=== PATIENT | male | born 1960 | race Caucasian/White ===

== ENCOUNTER → 2017-01-10 | Outpatient (REF) | payer OTHER ==
[~2017-01-10] MED LIST: ASPI1TAB PO; BENI40TA26 PO
[2017-01-10 17:03] LABS: ALBUMIN 3.7 GM/DL (3.2-5.2); ALBUMIN/GLOBULIN RATIO 1.28 (1.00-1.93); ALKALINE PHOSPHATASE 83 U/L (45-117); ALT/SGPT 21 U/L (12-78); ANION GAP 5 MEQ/L (8-16); AST/SGOT 12 U/L (15-37); BILIRUBIN,TOTAL 0.5 MG/DL (0.2-1.0); BLOOD UREA NITROGEN 13 MG/DL (7-18); CALCIUM LEVEL 10.2 MG/DL (8.5-10.1); CARBON DIOXIDE LEVEL 29 MEQ/L (21-32); CHLORIDE LEVEL 108 MEQ/L (98-107); CHOLESTEROL LEVEL 151 MG/DL (<200); CREATININE FOR GFR 0.98 MG/DL (0.70-1.30); GLOMERULAR FILTRATION RATE > 60.0 (>56); GLUCOSE, FASTING 82 MG/DL (70-105); SODIUM LEVEL 142 MEQ/L (136-145); TOTAL PROTEIN 6.6 GM/DL (6.4-8.2); TRIGLYCERIDES LEVEL 230 MG/DL (<150)
[2017-01-10 17:04] LABS: POTASSIUM SERUM 5.2 MEQ/L (3.5-5.1)
== END ==
LOC: M SFHCCLAY 10:42
PROVIDERS: ATTEND Nurse Practitioner
DX: I10 Essential (primary) hypertension (principal); Z12.5 Encounter for screening for malignant neoplasm of prostate
CPT/HCPCS: 80053; 80061; G0103

== ENCOUNTER → 2018-02-03 | Outpatient (CLI) | payer BC, OTHER | LOC: M SLEEP HO 14:55 | DX: G47.30 Sleep apnea, unspecified (principal) | CPT/HCPCS: G0399 ==

== ENCOUNTER → 2018-02-06 | Outpatient (REF) | payer BC ==
[2018-02-06 18:31] LABS: BASO # 0.1 10^3/uL (0.0-0.2); BASO % 0.8 % (0.0-1.0); EOS # 0.2 10^3/uL (0.0-0.50); EOS % 3.6 % (0.0-3.0); HEMATOCRIT 46.5 % (42.0-52.0); HEMOGLOBIN 16.2 g/dl (13.5-17.5); IMMATURE GRANULOCYTE % 0.5 % (0-3.0); LYMPH # 1.9 10^3/uL (1.5-4.5); MEAN CORPUSCULAR HEMOGLOBIN 31.3 pg (27.0-33.0); MEAN CORPUSCULAR HGB CONC 34.8 g/dl (32.0-36.5); MEAN CORPUSCULAR VOLUME 89.8 fl (80.0-96.0); MONO # 0.7 10^3/uL (0.0-0.8); MONO % 11.2 % (0.0-5.0); NEUTROPHILS # 3.2 10^3/uL (1.8-7.7); NEUTROPHILS % 51.9 % (36.0-66.0); PLATELET COUNT, AUTOMATED 226 10^3/uL (150-450); RED BLOOD COUNT 5.18 10^6/uL (4.30-6.10); WHITE BLOOD COUNT 6.1 10^3/uL (4.0-10.0)
[2018-02-06 18:43] LABS: ALBUMIN 3.8 GM/DL (3.2-5.2); ALBUMIN/GLOBULIN RATIO 1.27 (1.00-1.93); ALKALINE PHOSPHATASE 66 U/L (45-117); ALT/SGPT 20 U/L (12-78); ANION GAP 6 MEQ/L (8-16); AST/SGOT 19 U/L (7-37); BILIRUBIN,TOTAL 0.8 MG/DL (0.2-1.0); BLOOD UREA NITROGEN 16 MG/DL (7-18); CALCIUM LEVEL 9.4 MG/DL (8.5-10.1); CARBON DIOXIDE LEVEL 28 MEQ/L (21-32); CHLORIDE LEVEL 109 MEQ/L (98-107); CHOLESTEROL LEVEL 137 MG/DL (<200); CHOLESTEROL RISK RATIO 4.281 (<5); CREATININE FOR GFR 0.87 MG/DL (0.70-1.30); GLOMERULAR FILTRATION RATE > 60.0 (>56); GLUCOSE, FASTING 71 MG/DL (70-100); HDL CHOLESTEROL 32 MG/DL (>40); LDL CHOLESTEROL 73 MG/DL (<100); NON-HDL-C 105 MG/DL; POTASSIUM SERUM 4.7 MEQ/L (3.5-5.1); SODIUM LEVEL 143 MEQ/L (136-145); TOTAL PROTEIN 6.8 GM/DL (6.4-8.2); TRIGLYCERIDES LEVEL 161 MG/DL (<150)
== END ==
LOC: M SFHCCLAY 13:24
DX: Z00.00 Encounter for general adult medical examination without abnormal findings (principal); G47.30 Sleep apnea, unspecified; I10 Essential (primary) hypertension
CPT/HCPCS: 80053

== ENCOUNTER 2018-12-08 23:05 | Inpatient (IN) | payer OTHER, BC ==
[~2018-12-08] VITALS: Ht 185.4 cm; Wt 110.2 kg
[~2018-12-08 23:05] MED LIST changes: -ASPI1TAB PO; +ASPI81TA26 PO
[2018-12-08] MEDS ORDERED: LISI-538 PO (23:17)
[2018-12-09] MEDS ORDERED: hydrOXYzine 50 MG TAB PO STA (00:12)
[2018-12-09] MEDS ORDERED: methylPREDNISolone INJ 125 MG/2 ML VIAL (J2930) IV ONE (00:15)
[2018-12-09] MEDS ORDERED: diphenhydrAMINE INJ 50MG/ML VIAL (J1200) IV ONE (00:15)
[2018-12-09 00:47] LABS: BASO % 0.2 % (0.0-1.0); EOS # 0.4 10^3/uL (0.0-0.5); EOS % 3.6 % (0.0-3.0); HEMATOCRIT 47.1 % (42.0-52.0); HEMOGLOBIN 16.4 g/dl (13.5-17.5); LYMPH # 1.3 10^3/uL (1.5-5.0); LYMPH % 12.6 % (24.0-44.0); MEAN CORPUSCULAR HEMOGLOBIN 31.9 pg (27.0-33.0); MEAN CORPUSCULAR HGB CONC 34.8 g/dl (32.0-36.5); MEAN CORPUSCULAR VOLUME 91.6 fl (80.0-96.0); MONO % 9.2 % (0.0-5.0); NEUTROPHILS # 7.7 10^3/uL (1.5-8.5); PLATELET COUNT, AUTOMATED 217 10^3/uL (150-450); RED BLOOD COUNT 5.14 10^6/uL (4.30-6.10); WHITE BLOOD COUNT 10.3 10^3/uL (4.0-10.0)
[2018-12-09 01:06] LABS: ERYTHROCYTE SEDIMENTATION RATE 1 mm/hr (0-20)
[2018-12-09 01:08] LABS: C REACTIVE PROTEIN QUANTITATIV 1.08 MG/DL (0.00-0.30)
[2018-12-09] MEDS ORDERED: CLINDAMYCIN 900 MG in IV 1 EA IV ONE (02:00)
[2018-12-09] MEDS ORDERED: CLINDAMYCIN 600 MG in IV 1 EA IV ONE (02:00)
[2018-12-09] MEDS ORDERED: PRED20TA PO (02:23)
[2018-12-09] MEDS ORDERED: HYDR-3363 PO (02:23)
[2018-12-09] MEDS ORDERED: NS 1,000 ML IV ONE (02:45)
[2018-12-09] MEDS ORDERED: GARL500C10 PO (03:59)
[2018-12-09] MEDS ORDERED: VITA400C49 PO (03:59)
[2018-12-09] MEDS ORDERED: KP F1200 PO (03:59)
[2018-12-09] MEDS ORDERED: VITA500C24 PO (03:59)
[2018-12-09] MEDS ORDERED: diphenhydrAMINE INJ 50MG/ML VIAL (J1200) IV PRN (04:00)
--- NOTE | 2018-12-09 04:00 | HPEPDOC ---
[facility] Medical History & Physical Date of Admission Dec 09, 2018 Date of Service: Dec 09, 2018 Primary Care Physician: A Other Provider [facility] Heike Olsen Attending Physician: Kurt Baxter MD History and Physical TIME OF SERVICE: 3:10 AM CHIEF COMPLAINT: Bug bites HISTORY OF PRESENT ILLNESS: This is a 58-year-old male who was admitted to [facility] about a week and half ago for treatment of right hand and wrist swelling. He was diagnosed with cellulitis secondary to bedbug and was admitted for 4 days. Based on records from [place] the WBC count was normal, and blood cultures were negative. The patient was discharged home with a course of clindamycin and completed antibiotics . About 24 hours ago he received additional bites of his left wrist and both knees. Today is the 5th day after discharge from [facility]. He presented with complaints of redness and swelling associated with bites at the right dorsal hand, left anterior aspect of the wrist, and both knees. He has blisters on both knees and redness extending from the knees up until the groin. Per discussion with the ED provider over while in the ED, over a period of 90 minutes developed a streak of redness from the left wrist that extends up to the left elbow. He received Solu-Medrol, hydroxyzine, and 900 mg of clindamycin. He denies having dyspnea, Denies tongue swelling, denies difficulty breathing, denies wheezing, and denies having fevers, denies having chills. Denies any change in his appetite. REVIEW OF SYSTEMS: 12 point review of systems negative except as listed in HPI PAST MEDICAL/ SURGICAL HISTORY: Chronic hypertension. 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 Pancreatic cancer ALLERGIES: Please see below. HOME MEDICATIONS: Please see below. PHYSICAL EXAMINATION: VITAL SIGNS: Please see below. GENERAL APPEARANCE: Well-nourished, well-developed, not in apparent distress HEENT: Normocephalic, atraumatic, mucous membranes moist and pink CARDIOVASCULAR: Regular rate and rhythm. No murmurs, rubs or gallops. Radial pulses are intact. LUNGS: Clear to auscultation bilaterally on room air. There is no coughing. There is no use of accessory muscles MUSCULOSKELETAL: . Range of motion intact in all 4 extremities INTEGUMENT: There are scabs at the medial aspect of the ankle from old bites. There are blisters on both knees. Both knees are red and swollen and the redness extends in a streak-like pattern to the medial aspect of the upper leg. There are 2 bites on the dorsal surface of the right hand close to the thumb. There is a streak of redness at the anteroposterior aspect of the right upper arm. There is a bite on the left wrist with a streak of redness extending up from the wrist 2 words the elbow on the left arm. NEUROLOGICAL: Cranial nerves 2-12 are grossly intact. Speech is not dysarthric PSYCHIATRIC: Alert and oriented to person, place and time, able to understand and follow all commands LABORATORY DATA: See below. IMAGING: Not applicable MICROBIOLOGY: Please see below. ASSESSMENT: Mr. Gallego is a 50-year-old male with a past, medical history of hypertension, who will be admitted for observation because an allergic reaction to bug bites. 1. Allergic reaction to multiple bug bites affecting right hand, left wrist and both knees The patient was previously bitten 5 months ago 1-1/2 weeks ago and 24 hours prior to arrival in the ED There may also be a component of cellulitis He has leukocytosis with eosinophilia but no other systemic signs. CRP is 1.08 PLAN: Admit to PCU/monitor vitals frequently/continue with Solu-Medrol, Benadryl, hydroxyzine and clindamycin 2. Chronic hypertension. Plan: Continue home meds 3. Obesity BMI 31.2. Had a normal sleep study in 2007 with recommendations to undergo formal sleep study in a sleep lab Plan: can f/u w PCP to discuss diet & formal sleep study if not already done / recommend cardiovascular exercise for 40 min 4-5 days a week DVT prophylaxis with SCDs. Disposition pending clinical course Vital Signs Vital Signs Date Time Temp Pulse Resp B/P (MAP) Pulse Ox O2 Delivery O2 Flow Rate FiO2 12/09/18 03:31 71 136/62 (86) 12/09/18 03:30 98.8 18 99 Room Air Laboratory Data Labs 24H Laboratory Tests 2 12/09/18 00:22: Immature Granulocyte % (Auto) 0.4, White Blood Count 10.3H, Red Blood Count 5.14, Hemoglobin 16.4, Hematocrit 47.1, Mean Corpuscular Volume 91.6, Mean Corpuscular Hemoglobin 31.9, Mean Corpuscular Hemoglobin Concent 34.8, Red Cell Distribution Width 12.5, Platelet Count 217, Neutrophils (%) (Auto) 74.0H, Lymphocytes (%) (Auto) 12.6L, Monocytes (%) (Auto) 9.2H, Eosinophils (%) (Auto) 3.6H, Basophils (%) (Auto) 0.2, Neutrophils # (Auto) 7.7, Lymphocytes # (Auto) 1.3L, Monocytes # (Auto) 1.0H, Eosinophils # (Auto) 0.4, Basophils # (Auto) 0.0, Nucleated Red Blood Cells % (auto) 0.0, Erythrocyte Sedimentation Rate 1, Lactic Acid Level 1.8, C-Reactive Protein, Quantitative 1.08H 12/09/18 00:33: POC Glucose (Misc Panel) 97, POC Sodium (Misc Panel) 140, POC Potassium (Misc Panel) 3.9, POC Chloride (Misc Panel) 103, POC Total CO2 (Misc Panel) 27.0, POC Blood Urea Nitrogen (Misc Panel 14, POC Ionized Calcium (Misc Panel) 5.0, POC Creatinine (Misc Panel) 1.1, POC Hematocrit (Misc Panel) 46.0 CBC/BMP Laboratory Tests 12/09/18 00:22 Red Blood Count 5.14, Mean Corpuscular Volume 91.6, Mean Corpuscular Hemoglobin 31.9, Mean Corpuscular Hemoglobin Concent 34.8, Red Cell Distribution Width 12.5, Neutrophils (%) (Auto) 74.0 H, Lymphocytes (%) (Auto) 12.6 L, Monocytes (%) (Auto) 9.2 H, Eosinophils (%) (Auto) 3.6 H, Basophils (%) (Auto) 0.2, Neutrophils # (Auto) 7.7, Lymphocytes # (Auto) 1.3 L, Monocytes # (Auto) 1.0 H, Eosinophils # (Auto) 0.4, Basophils # (Auto) 0.0 Microbiology Microbiology 12/09/18 Blood Culture, Received Pending 12/09/18 Blood Culture, Received Pending Home Medications Scheduled Ascorbic Acid (Vitamin C) 500 Mg Capsule, 500 MG PO QID Aspirin (Aspirin EC) 81 Mg Tab, 81 MG PO DAILY Clindamycin Hcl (Clindamycin HCl) 150 Mg Capsule, 600 MG PO TID Fish Oil/Dha/Epa (Fish Oil 1,200 mg Fish Oil) 1 Each Capsule, 2,400 MG PO DAILY Garlic (Garlic) 500 Mg Capsule, 500 MG PO TID Lisinopril (Lisinopril) 20 Mg Tablet, 20 MG PO QHS Prednisone (Prednisone) 20 Mg Tablet, 40 MG PO DAILY Vitamin E (Vitamin E) 400 Unit Capsule, 800 UNIT PO DAILY Allergies Coded Allergies: Penicillins (Verified Allergy, Severe, anaphylaxis, 12/08/18) A-FIB/CHADSVASC A-FIB History Current/History of A-Fib/PAF?: No Current PO Anticoag Therapy: No LES BABIN MD Dec 09, 2018 04:00
[2018-12-09 05:30] VITALS: BP 107/56
[2018-12-09 05:33] VITALS: BP 110/56
[2018-12-09 05:36] VITALS: BP 118/58
[2018-12-09 06:00] VITALS: BP 110/56
[2018-12-09] MEDS ORDERED: methylPREDNISolone INJ 125 MG/2 ML VIAL (J2930) IV SCH (06:00)
[2018-12-09 07:54] VITALS: BP 104/53
[2018-12-09] MEDS ORDERED: CLINDAMYCIN 600 MG in IV 1 EA IV SCH (08:00)
[2018-12-09] MEDS: CLINDAMYCIN 900 MG in IV 1 EA IV SCH ×2 (14:07→20:27)
--- NOTE | 2018-12-09 15:27 | IPN ---
DATE: 12/09/2018 SUBJECTIVE: The patient was admitted from the emergency department (ED) with complaints of red blotches on his skin that he believes are caused by reaction to arthropod bites, specifically bedbugs. He had been admitted to for 4 days at [facility], treated with 900 mg of clindamycin every 6 hours after failing to improve on clindamycin at 600 mg every 6 hours and had improved and was sent home with oral treatment, same dosing, and developed new lesions, redness, swelling on his inner-upper arm, posterior left thigh, left wrist and forearm, and right knee and left knee. These lesions on the left knee have bullae and erythema of the skin, some induration. They are not tender to touch, but they are itchy. He was admitted with monitoring because of concern about potential anaphylaxis. His blood pressures have been stable. He has no wheezing. No cough. No evidence of hives remote from the sites of these skin openings, and even at the sites it is a matter of more localized general redness. He has no headache, dizziness, lightheadedness, or cough at this point. OBJECTIVE: Blood pressure is 104/53; it has been as high as 118/58. He is not tachycardiac. Pulses range between 87 and 62, temperature 97.9. Itching at the site but not remote from the sites. The areas of erythema have diminished somewhat, although not dramatically so since admission. Lungs clear. There is no wheezing. No adenopathy. ASSESSMENT: Localized reaction to what appear to be arthropod bites. Systemic infection from bed bugs is unlikely, although there is evidence that they have been found to be able to carry organisms, such as Bartonella and Trypanosoma. I could find no reference indicating confirmed evidence of transmission of these diseases with the bedbugs as a factor. Still, he does have evidence of eosinophilia on his peripheral smear. Plan will be to boost his clindamycin. ASSESSMENT: Bed bugs with local reaction. Cannot rule out an infection or localized infectious process, such as Bartonellosis or Trypanosoma. PLAN: Will continue clindamycin, since this seemed to be effective before, at 900 mg every 6. We will continue his anti-itching regimen, prednisone. He is on his currently on Solu-Medrol, which I think can be dosed at a lower level until tomorrow then switch to oral. If the patient is still in the hospital on Tuesday, consider infectious disease (ID) consult regarding search for exotic microorganisms that might cause this extensive reaction. Bartonella PCR will be requested from blood, since there is documented evidence of the bed bugs carrying this organism. Remove him from his current intensive care unit (ICU)/progressive care unit (PCU) status to a regular room since there is no evidence of cardiopulmonary collapse imminent, and again change his current Solu-Medrol dose to a lower intensity of steroid treatment.
[2018-12-09] MEDS: predniSONE 20 MG TAB PO SCH (20:27)
[2018-12-09] MEDS: lisinopriL 20 MG TAB PO SCH (20:27)
[2018-12-09 22:00] VITALS: BP 141/63
[2018-12-10] MEDS: CLINDAMYCIN 900 MG in IV 1 EA IV SCH ×4 (01:14→20:57)
[2018-12-10 06:00] VITALS: BP 127/67
[2018-12-10 06:54] LABS: HEMATOCRIT 41.2 % (42.0-52.0); MEAN CORPUSCULAR HEMOGLOBIN 30.9 pg (27.0-33.0); MEAN CORPUSCULAR HGB CONC 34.5 g/dl (32.0-36.5); MEAN CORPUSCULAR VOLUME 89.6 fl (80.0-96.0); PLATELET COUNT, AUTOMATED 200 10^3/uL (150-450); WHITE BLOOD COUNT 18.4 10^3/uL (4.0-10.0)
[2018-12-10 07:07] LABS: HEMOGLOBIN 14.2 g/dl (13.5-17.5)
[2018-12-10 07:27] LABS: ALBUMIN 3.1 GM/DL (3.2-5.2); ALT/SGPT 14 U/L (12-78); BILIRUBIN,TOTAL 0.4 MG/DL (0.2-1.0); BLOOD UREA NITROGEN 15 MG/DL (7-18); CALCIUM LEVEL 9.4 MG/DL (8.5-10.1); CARBON DIOXIDE LEVEL 26 MEQ/L (21-32); CHLORIDE LEVEL 112 MEQ/L (98-107); CREATININE FOR GFR 0.98 MG/DL (0.70-1.30); GLOMERULAR FILTRATION RATE > 60.0 (>56); GLUCOSE, FASTING 122 MG/DL (70-100); MAGNESIUM LEVEL 2.1 MG/DL (1.8-2.4); POTASSIUM SERUM 4.3 MEQ/L (3.5-5.1); SODIUM LEVEL 144 MEQ/L (136-145); TOTAL PROTEIN 5.5 GM/DL (6.4-8.2)
[2018-12-10] MEDS: predniSONE 20 MG TAB PO SCH ×2 (07:50→20:26)
[2018-12-10] MEDS: hydrOXYzine 25 MG TAB PO PRN (07:50)
[2018-12-10 14:48] VITALS: BP 129/67
--- NOTE | 2018-12-10 16:02 | IPN ---
DATE: 12/10/2018 SUBJECTIVE: Overnight the patient has had no new problems. His rash is improved, redness has almost completely disappeared. He has still some redness on the inner upper arm and a little bit on the right knee. Blistering is smaller, certainly no bigger, and he has no pain. No fevers, no chills overnight. OBJECTIVE: White count however is up to 18.8 which is something of a concern but overall clinically he is significantly better and other laboratory includes chemistry which is remarkable only for a chloride of 112 and a fasting glucose of 122. Serologies of course are still pending including Bartonella DNA which is a send out, Lyme disease antibody which is a send out, HIV also pending. Consideration for testing for Trypanosomes was had yesterday, discussion with laboratory indicates that build technician on yesterday could not identify any send out for Trypanosomes identification, suggested we talk to a build technician coming in on duty on Tuesday morning regarding this possibility. 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 This truck might have been located in parts of the [facility] where Trypanosomes do occur and used by a different wrecker driver who might have traveled into [place] or [facility] ([place], [place]). This is a remote possibility but if testing for Trypanosomes is possible, it might be reasonable to include that. Will consider consultation with infectious disease after discharge. PLAN: Is to continue IV clindamycin overnight and tomorrow switch him to by mouth clindamycin at the same dose for discharge. If there is any rash or any recurrence than consultation with infectious disease specialist would be appropriate. 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
[2018-12-10 20:25] VITALS: BP 131/67
[2018-12-10] MEDS: lisinopriL 20 MG TAB PO SCH (20:25)
[2018-12-10 22:00] VITALS: BP 131/67
[2018-12-11] MEDS: CLINDAMYCIN 900 MG in IV 1 EA IV SCH ×3 (03:09→12:59)
[2018-12-11 05:40] LABS: BASO % 0.2 % (0.0-1.0); EOS # 0.2 10^3/uL (0.0-0.5); EOS % 1.3 % (0.0-3.0); HEMATOCRIT 41.4 % (42.0-52.0); LYMPH # 1.1 10^3/uL (1.5-5.0); LYMPH % 8.5 % (24.0-44.0); MEAN CORPUSCULAR HEMOGLOBIN 30.6 pg (27.0-33.0); MEAN CORPUSCULAR HGB CONC 33.8 g/dl (32.0-36.5); MEAN CORPUSCULAR VOLUME 90.4 fl (80.0-96.0); MONO # 0.9 10^3/uL (0.0-0.8); MONO % 6.9 % (0.0-5.0); NEUTROPHILS # 10.9 10^3/uL (1.5-8.5); PLATELET COUNT, AUTOMATED 198 10^3/uL (150-450); RED BLOOD COUNT 4.58 10^6/uL (4.30-6.10); WHITE BLOOD COUNT 13.2 10^3/uL (4.0-10.0)
[2018-12-11 06:00] VITALS: BP 128/67
[2018-12-11 06:13] LABS: ALBUMIN 2.9 GM/DL (3.2-5.2); ALT/SGPT 14 U/L (12-78); BILIRUBIN,TOTAL 0.5 MG/DL (0.2-1.0); BLOOD UREA NITROGEN 15 MG/DL (7-18); CALCIUM LEVEL 9.1 MG/DL (8.5-10.1); CARBON DIOXIDE LEVEL 27 MEQ/L (21-32); CHLORIDE LEVEL 110 MEQ/L (98-107); CREATININE FOR GFR 0.95 MG/DL (0.70-1.30); GLOMERULAR FILTRATION RATE > 60.0 (>56); GLUCOSE, FASTING 109 MG/DL (70-100); POTASSIUM SERUM 4.1 MEQ/L (3.5-5.1); SODIUM LEVEL 144 MEQ/L (136-145); TOTAL PROTEIN 5.8 GM/DL (6.4-8.2)
[2018-12-11] MEDS: predniSONE 20 MG TAB PO SCH (08:22)
[2018-12-11] MEDS: hydrOXYzine 25 MG TAB PO PRN (08:22)
[2018-12-11] MEDS ORDERED: PRED20TA PO (10:04)
[2018-12-11] MEDS ORDERED: CLIN150C14 PO (10:04)
--- NOTE | 2018-12-11 10:35 | DSES ---
DATE OF ADMISSION: 12/09/2018 DATE OF DISCHARGE: 12/11/2018 PRIMARY CARE PROVIDER: JOSETTE Abraham ATTENDING PHYSICIAN: Today is Ross Glaser MD. HISTORY: This is a 58-year-old male patient who presented to [facility] Emergency Room with swelling, surrounding bug bites on the right dorsal hand, left anterior aspect of the wrist and both knees, blisters on both knees with redness extending up to the groin. Per discussion in the emergency room, it was noted that there is streaking in the left wrist, extended to the elbow, and just in the duration that he was seen in the emergency room. He was admitted to the hospital for an allergic reaction secondary to multiple bug bites, likely with a concomitant cellulitis. He was started on intravenous (IV) clindamycin, as well as Solu-Medrol and hydroxyzine. During his hospitalization, the erythema and swelling has significantly improved. He will transition to oral clindamycin and has been transitioned already to oral prednisone. He seems to be tolerating this well. Will continue him on a taper at discharge. He has been tested for Bartonella PCR, which is pending. Lyme and HIV are also pending. There was some discussion over whether or not he needed to be tested for trypanosomes. I have spoken with Dr. Arredondo, who feels at this point no further testing is necessary. She recommended that if recurrence occurs that he should be seen urgently in her office and with dermatology and biopsies should be obtained. His discharge diagnoses include bedbug bites with concomitant cellulitis, morbid obesity, hypertension. DISCHARGE MEDICATIONS: Include: - aspirin 81 mg daily - clindamycin 600 mg three times daily - prednisone 40 mg daily times 3 days, then 30 times 3 days, then 20 times 3 days, then 10 times 3 days - vitamin C 500 mg four times daily - fish oil 2400 mg daily - garlic 500 mg three times daily - lisinopril 20 mg daily - vitamin E 800 mg daily DISCHARGE PLAN: Will be to followup with Nikki Olsen in 1 week. He can return to work without restriction. His activity should be as tolerated. His diet should be regular. edited: 12/12/2018 0615 tkf MTDD
[2018-12-11 10:37] LABS: C REACTIVE PROTEIN QUANTITATIV 0.51 MG/DL (0.00-0.30)
[2018-12-13 00:06] LABS: Lyme Disease IgG/IgM Antibodie <0.91 ISR (0.00-0.90); Lyme Disease IgM Ab Quantitati <0.80 index (0.00-0.79)
[2018-12-16 06:48] LABS: HIV 1&2 SCREEN CENTAUR REACTIVE (NEGATIVE)
== END 2018-12-11 14:15 | disposition home or self-care (01) | DRG 385 ==
LOC: M ED 23:05 → M ED INP 23:06 → M ICU 12-09 05:40 → OBSVTOIN 12-09 11:11 → M MS5PR 12-09 15:15
PROVIDERS: ADMIT Internal Medicine; ATTEND Family Medicine
DX: S80.261A Insect bite (nonvenomous), right knee, initial encounter (principal); L03.115 Cellulitis of right lower limb; I10 Essential (primary) hypertension; L03.116 Cellulitis of left lower limb; E66.01 Morbid (severe) obesity due to excess calories; S80.262A Insect bite (nonvenomous), left knee, initial encounter; L03.113 Cellulitis of right upper limb; Z79.82 Long term (current) use of aspirin; Z79.899 Other long term (current) drug therapy; W57.XXXA Bitten or stung by nonvenomous insect and other nonvenomous arthropods, initial encounter; Y92.009 Unspecified place in unspecified non-institutional (private) residence as the place of occurrence of the external cause

== ENCOUNTER 2018-12-22 15:38 | Emergency (ER) | payer BC ==
[~2018-12-22] VITALS: Ht 185.4 cm; Wt 108.6 kg
[~2018-12-22 15:38] MED LIST changes: +CLIN150C14 PO; +GARL500C10 PO; +HYDR-3363 PO; +KP F1200 PO; +LISI-538 PO; +PRED20TA PO; +VITA400C49 PO; +VITA500C24 PO
[2018-12-22] MEDS ORDERED: PRED20TA PO (17:50)
[2018-12-22] MEDS ORDERED: CLEO300C2 PO (17:50)
[2018-12-22 18:13] VITALS: BP 156/85
== END 2018-12-22 18:16 | disposition home or self-care (01) ==
LOC: M ED 15:38
DX: L03.114 Cellulitis of left upper limb (principal); S50.862D Insect bite (nonvenomous) of left forearm, subsequent encounter; W57.XXXA Bitten or stung by nonvenomous insect and other nonvenomous arthropods, initial encounter; Y92.9 Unspecified place or not applicable; S00.06XD Insect bite (nonvenomous) of scalp, subsequent encounter; I10 Essential (primary) hypertension; Z88.0 Allergy status to penicillin; Z79.82 Long term (current) use of aspirin; Z79.899 Other long term (current) drug therapy; Y99.8 Other external cause status

== ENCOUNTER → 2019-01-22 | Outpatient (REF) | payer BC ==
[~2019-01-22] MED LIST changes: +CLEO300C2 PO
== END ==
LOC: M SFHCPLAZ 13:29
PROVIDERS: ATTEND Internal Medicine Infectious Disease
DX: L03.818 Cellulitis of other sites (principal)

== ENCOUNTER → 2019-03-12 | Outpatient (REF) | payer BC ==
[2019-03-13 12:48] LABS: BASO % 0.5 % (0.0-1.0); EOS # 0.2 10^3/uL (0.0-0.5); EOS % 3.9 % (0.0-3.0); HEMATOCRIT 49.4 % (42.0-52.0); HEMOGLOBIN 16.1 g/dl (13.5-17.5); LYMPH # 1.6 10^3/uL (1.5-5.0); LYMPH % 26.3 % (24.0-44.0); MEAN CORPUSCULAR HEMOGLOBIN 30.7 pg (27.0-33.0); MEAN CORPUSCULAR HGB CONC 32.6 g/dl (32.0-36.5); MEAN CORPUSCULAR VOLUME 94.3 fl (80.0-96.0); MONO # 0.7 10^3/uL (0.0-0.8); MONO % 12.1 % (0.0-5.0); NEUTROPHILS # 3.3 10^3/uL (1.5-8.5); NEUTROPHILS % 56.4 % (36.0-66.0); PLATELET COUNT, AUTOMATED 229 10^3/uL (150-450); RED BLOOD COUNT 5.24 10^6/uL (4.30-6.10); WHITE BLOOD COUNT 5.9 10^3/uL (4.0-10.0)
[2019-03-13 13:06] LABS: ALBUMIN 3.9 GM/DL (3.2-5.2); ALT/SGPT 21 U/L (12-78); BILIRUBIN,TOTAL 0.5 MG/DL (0.2-1.0); BLOOD UREA NITROGEN 14 MG/DL (7-18); CALCIUM LEVEL 9.7 MG/DL (8.5-10.1); CARBON DIOXIDE LEVEL 29 MEQ/L (21-32); CHLORIDE LEVEL 107 MEQ/L (98-107); CHOLESTEROL LEVEL 152 MG/DL (<200); CHOLESTEROL RISK RATIO 4.903 (<5); CREATININE FOR GFR 1.18 MG/DL (0.70-1.30); FREE T4 0.89 NG/DL (0.76-1.46); GLOMERULAR FILTRATION RATE > 60.0 (>56); GLUCOSE, FASTING 97 MG/DL (70-100); HDL CHOLESTEROL 31 MG/DL (>40); LDL CHOLESTEROL 87 MG/DL (<100); NON-HDL-C 121 MG/DL; POTASSIUM SERUM 4.7 MEQ/L (3.5-5.1); SODIUM LEVEL 141 MEQ/L (136-145); TOTAL PROTEIN 6.9 GM/DL (6.4-8.2); TRIGLYCERIDES LEVEL 170 MG/DL (<150)
== END ==
LOC: M SFHCCLAY 15:24
PROVIDERS: ATTEND Nurse Practitioner Family
DX: Z00.00 Encounter for general adult medical examination without abnormal findings (principal); G47.30 Sleep apnea, unspecified; I10 Essential (primary) hypertension; Z12.5 Encounter for screening for malignant neoplasm of prostate; R35.1 Nocturia
CPT/HCPCS: 80053; 80061; 84439; 84443; 85025; G0103

== ENCOUNTER → 2019-04-23 | Outpatient (REF) | payer BC ==
[2019-04-23 18:13] LABS: APPEARANCE, URINE CLEAR (CLEAR); BACTERIA, URINE AUTO NEGATIVE (NEGATIVE); BILIRUBIN, URINE AUTO NEGATIVE (NEGATIVE); BLOOD, URINE BLOOD NEGATIVE (NEGATIVE); COLOR, URINE YELLOW (YELLOW); GLUCOSE, URINE (UA) AUTO NEGATIVE (NEGATIVE); KETONE, URINE AUTO NEGATIVE (NEGATIVE); LEUKOCYTE ESTERASE, URINE AUTO NEGATIVE (NEGATIVE); MUCUS, URINE SMALL (NEGATIVE); NITRITE, URINE AUTO NEGATIVE (NEGATIVE); PROTEIN, URINE AUTO NEGATIVE (NEGATIVE); RBC, URINE AUTO 0 /HPF (0-3); SPECIFIC GRAVITY URINE AUTO 1.025 (1.002-1.035); SQUAMOUS EPITHELIAL CELL UR AU 0 /HPF (0-6); UROBILINOGEN, URINE AUTO 0.2 mg/dL (0.0-2.0); WBC, URINE AUTO 0 /HPF (0-3)
== END ==
LOC: M SMT 17:25
PROVIDERS: ATTEND Nurse Practitioner Family
DX: R39.11 Hesitancy of micturition (principal)

== ENCOUNTER → 2019-05-11 | Outpatient (REF) | payer BC | LOC: M SFHCCLAY 11:31 | PROVIDERS: ATTEND Nurse Practitioner Family | DX: R97.20 Elevated prostate specific antigen [PSA] (principal) ==

== ENCOUNTER 2019-06-20 08:15 | Day surgery (SDC) | payer BC ==
[~2019-06-20] VITALS: Ht 188 cm; Wt 104.3 kg
[~2019-06-20 08:15] MED LIST changes: +LIDOCAINE 2% INJ 100 MG/5 ML SDV (FOR ANES.) As Ordered ONE; +propofoL 200 MG/20 ML VIAL As Ordered ONE
[2019-06-20] MEDS: NS 1,000 ML IV SCH (08:51)
--- NOTE | 2019-06-20 09:42 | ROOR ---
Patient Name: Rc Gallego Procedure Date: 06/20/2019 9:21 AM Date of : 1960 Age: 58 Room: [facility] Gender: Male Note Status: Finalized Procedure: Colonoscopy Indications: Rectal bleeding Providers: DO Sallie Holland MD: Leona Olsen NP Requesting Provider: Medicines: Propofol per Anesthesia Complications: No immediate complications. Procedure: Pre-Anesthesia Assessment: - Prior to the procedure, a History and Physical was performed, and patient medications and allergies were reviewed. The patient is competent. The risks and benefits of the procedure and the sedation options and risks were discussed with the patient. All questions were answered and informed consent was obtained. Patient identification and proposed procedure were verified by the physician, the nurse, the anesthesiologist and the serology technician in the endoscopy suite. Mental Status Examination: alert and oriented. Airway Examination: normal oropharyngeal airway and neck mobility. Respiratory Examination: clear to auscultation. CV Examination: normal. Prophylactic Antibiotics: The patient does not require prophylactic antibiotics. Prior Anticoagulants: The patient has taken no previous anticoagulant or antiplatelet agents. ASA Grade Assessment: II - A patient with mild systemic disease. After reviewing the risks and benefits, the patient was deemed in satisfactory condition to undergo the procedure. The anesthesia plan was to use monitored anesthesia care (MAC). Immediately prior to administration of medications, the patient was re-assessed for adequacy to receive sedatives. The heart rate, respiratory rate, oxygen saturations, blood pressure, adequacy of pulmonary ventilation, and response to care were monitored throughout the procedure. The physical status of the patient was re-assessed after the procedure. The Colonoscope was introduced through the anus with the intention of advancing to the cecum. The scope was advanced to the sigmoid colon before the procedure was aborted. Medications were not given. The colonoscopy was performed without difficulty. The colonoscopy was aborted due to unsatisfactory bowel prep. Findings: The digital rectal exam revealed a 4 cm (diameter) hard rectal mass. The mass was non-circumferential and located predominantly at the anterior bowel wall. An ulcerated non-obstructing large mass was found in the rectum. The mass was non-circumferential. Oozing was present. Biopsies were taken with a cold forceps for histology. Estimated blood loss was minimal. Impression: - The procedure was aborted due to unsatisfactory bowel prep. - Rectal mass. - Likely malignant tumor in the rectum. Biopsied. - Malignant-appearing tumor in the colon. [Removed]. Recommendation: - Patient has a contact number available for emergencies. The signs and symptoms of potential delayed complications were discussed with the patient. Return to normal activities tomorrow. Written discharge instructions were provided to the patient. - Repeat colonoscopy in 1 year for surveillance based on pathology results. - Return to my office in 1 week. - Await pathology results. Tucker Hyde DO 06/20/2019 9:42:07 AM Electronically signed by Tucker Hyde DO Number of Addenda: 0 Note Initiated On: 06/20/2019 9:21 AM Estimated Blood Loss: Estimated blood loss was minimal.
[2019-06-20 10:00] VITALS: BP 149/83
== END 2019-06-20 09:48 | disposition home or self-care (01) ==
LOC: M OPP 08:15
PROVIDERS: ATTEND Surgery
DX: C44.520 Squamous cell carcinoma of anal skin (principal); K62.89 Other specified diseases of anus and rectum; K62.5 Hemorrhage of anus and rectum; K64.1 Second degree hemorrhoids; Z79.82 Long term (current) use of aspirin; Z79.899 Other long term (current) drug therapy; Z88.0 Allergy status to penicillin

== ENCOUNTER → 2019-06-25 | Outpatient (CLI) | payer BC ==
[~2019-06-25] MED LIST changes: +GASTROGRAFIN SOLUTION 30ML (Q9963) As Ordered ONE; +ISOVUE-370 76% 100ML VIAL (Q9967) As Ordered ONE; -LIDOCAINE 2% INJ 100 MG/5 ML SDV (FOR ANES.) As Ordered ONE; -propofoL 200 MG/20 ML VIAL As Ordered ONE
--- NOTE | 2019-06-25 15:12 | REP ---
Clinical: Malignant neoplasm of the rectum. Technique: Axial contrast enhanced images from the thoracic inlet to the upper abdomen with coronal and sagittal re-formations using 100 ml Isovue 370 intravenous contrast material. Findings: Bilateral lung izquierdo are well-aerated and clear. No consolidation, nodule or mass lesion. No pleural effusion. No pneumothorax. Tracheobronchial tree is patent. No obvious adenopathy. The mediastinum demonstrates normal thoracic aorta, pulmonary vasculature and heart/pericardium. Musculoskeletal structures are intact. Impression: No acute mediastinal or pleuroparenchymal process. No evidence for metastatic disease. Electronically Signed by Manoj Garza MD 06/25/2019 03:04 P
--- NOTE | 2019-06-25 15:16 | REP ---
Clinical: Malignant neoplasm of the rectum. Technique: Axial contrast enhanced images from the lung bases to the pubic symphysis using oral (per protocol) and 100 ml Isovue 370 intravenous contrast material coronal and sagittal re-formations. Delayed images of the abdomen obtained. Findings: Liver, spleen, pancreas, bilateral adrenal glands and kidneys are normal. Cholelithiasis noted without acute cholecystitis. The enteric system is without obstruction or acute inflammatory process. Normal terminal ileum, cecum and appendix identified in the right lower. No obvious rectal mass lesion is appreciated. However, perirectal stranding and adenopathy with lymph nodes measuring up to 17 mm are identified. No ascites. Further evaluation of the pelvis demonstrates normal bladder and prostatomegaly. No retroperitoneal adenopathy. No free air. Abdominal aorta and vasculature without aneurysm or dissection. Musculoskeletal structures demonstrate degenerative changes without focal abnormality. Impression: 1. Perirectal adenopathy with lymph nodes measuring up to 17 mm. 2. Cholelithiasis. 3. Prostatomegaly. Electronically Signed by Manoj Garza MD 06/25/2019 03:08 P
== END ==
LOC: M RAD 12:29
PROVIDERS: ATTEND Surgery
DX: C20 Malignant neoplasm of rectum (principal)
CPT/HCPCS: 71260; 74177; Q9963; Q9967

== ENCOUNTER → 2019-07-03 | Outpatient (CLI) | payer BC ==
[~2019-07-03] MED LIST changes: +BENI1TAB3 PO; -GASTROGRAFIN SOLUTION 30ML (Q9963) As Ordered ONE; -ISOVUE-370 76% 100ML VIAL (Q9967) As Ordered ONE
--- NOTE | 2019-07-04 13:08 | RADONC ---
RADIATION ONCOLOGY CONSULTATION NOTE DATE: 07/03/2019 CHART #: [id number] DIAGNOSIS: Anal cancer. STAGE: In progress, but clinically a stage III A, T2, N1, M0. ECOG PERFORMANCE STATUS: 0. CONSULTATION NOTE: Mr. 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 HISTORY OF PRESENT ILLNESS: The patient was in his usual state of health until 2018 when he first noted some blood in his stools. The patient has a history of hemorrhoids and did not think much of it. This did progress and he was seen by his nurse practitioner, JOSETTE Abraham, who subsequently referred him to our surgeon, Tucker Hyde DO. Dr. Hyde did a rectal examination and found a 4 cm hard anterior rectal mass extending near the anus. There was oozing present. 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 A PET scan was ordered, but is still in clinical review and has been rejected twice. There is schedule for a peer to peer review with the patient's medical oncologist, Dr. Victorino Saunders, on Tuesday for final staging and treatment planning. CT scans, however, were undertaken on 06/25/2019 of the chest, abdomen and pelvis. The chest showed no evidence of metastatic disease. The abdomen and pelvis CT scan showed perirectal stranding and adenopathy with lymph nodes measuring up to 17 mm. There was a large prostate as well. No retroperitoneal adenopathy was seen. No obvious metastatic sites were seen. The patient has now been referred to me for discussion of external beam radiation therapy as definitive treatment. PAST MEDICAL HISTORY: The patient's past medical history is positive for hypertension. ALLERGIES: The patient is allergic to PENICILLIN. SOCIAL HISTORY: The patient does not smoke cigarettes nor abuse alcohol. 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 FAMILY HISTORY: The patient's family history is positive for a mother with pancreatic cancer, a father with prostate cancer and a sister with renal cell carcinoma. REVIEW OF SYSTEMS: The patient's review of systems is positive for some rectal bleeding, but is otherwise noncontributory. Denies nausea, vomiting, fevers, chills, night sweats, diplopia, headaches, anxiety or depression, anorexia, weight loss, visual disturbances, chest pain, urinary or bowel difficulties, bone pain, or neurological problems. PHYSICAL EXAMINATION: Physical examination was deferred secondary to COVID-19 precautions. MEDICAL NECESSITY: IMRT/IGRT is clinically indicated for the highly conformal dose planning required. The target volume is in close proximity to critical structures such as the rectum, bladder, small bowel and femoral heads. The volume of interest must be covered with narrow margins to adequately protect immediately adjacent structures. The plan requires interpretation of complex testing such as CT localization. As noted above, special planning (IMRT) and localizing (IGRT) is required and essential to maximally protect sensitive normal tissue structures which cannot be accomplished using conventional three-dimensional planning. ASSESSMENT: I still am awaiting the patient's PET scan study for final staging and recommendations may change. Preliminarily, however, from the information I have in the CT scans, this appears to be localized disease. I therefore believe he is a candidate for definitive external beam radiation therapy with IMRT/IGRT combined with systemic therapy consisting of 5-FU and mitomycin C. I have discussed with the patient in detail the potential benefits as well as possible acute and chronic sequelae of external beam radiation therapy. We have discussed the logistics of treatment planning, simulation and subsequent fractionated daily radiation treatments. I am scheduling the patient for initiation of treatment planning at this time since his simulation will not change as simulation itself is the first step and final izquierdo can be changed pending his CT scan results. I will coordinate his care with his medical oncologist, Dr. Victorino Saunders, as well. Thank you for allowing us to participate in the care of this very pleasant gentleman. If I could be of any further assistance or provide you with any information, please feel free to contact me at anytime. As always warm regards. cc: Leona Olsen, JOSETTE Hyde DO Victorino Saunders MD
== END ==
LOC: M ONCR 09:17
PROVIDERS: ATTEND Radiology Radiation Oncology
DX: C21.8 Malignant neoplasm of overlapping sites of rectum, anus and anal canal (principal)

== ENCOUNTER → 2019-07-05 | Outpatient (CLI) | payer BC ==
[~2019-07-05] MED LIST changes: +LIDOCAINE 1% MDV 20ML VIAL As Ordered ONE; +MIDAZOLAM INJ 2 MG/2 ML VIAL (J2250) As Ordered ONE; +VANCOMYCIN HCL 500 MG/10 ML VIAL (J3370) As Ordered ONE; +diphenhydrAMINE INJ 50MG/ML VIAL (J1200) As Ordered ONE; +fentaNYL 100 MCG/2 ML INJECTION (J3010) As Ordered ONE
--- NOTE | 2019-07-05 09:28 | IRHP ---
[facility] IR Pre-Procedure H & P General Date of Service: Jul 05, 2019 Procedure: Same Day Surgery Interval History and Physical I have seen the patient and reviewed last H & P performed within 30 days. There is no significant interval change. History of Present Illness Chief Complaint The patient is a 58-year-old male admitted with a reason for visit of Rectal Ca. PRE-PROCEDURE DIAGNOSIS: anal ca HEART: normal rate. LUNGS: normal breathing at rest. ASA Classification ASA Classification: II-Mild systemic disease Mallampati Score: II NPO: Yes Problems with prior sedation: No Obstructive Sleep Apnea: No Plan moderate sedation Allergies Coded Allergies: Penicillins (Verified Allergy, Severe, anaphylaxis, 12/08/18) Home Medications Scheduled Aspirin (Aspirin EC), 81 MG PO DAILY, (Reported) Lisinopril (Lisinopril), 20 MG PO QHS, (Reported) Discontinued Medications Olmesartan Medoxomil (Benicar), 1 TAB PO DAILY, (Reported) Discontinued Reason: Pt states not taking VS, I&O, 24H, Fishbone Vital Signs/I&O Vital Signs Date Time Temp Pulse Resp B/P (MAP) Pulse Ox O2 Delivery O2 Flow Rate FiO2 07/05/19 08:25 98.7 61 16 98 Room Air Laboratory Data 24H LABS Laboratory Tests 2 07/05/19 09:30: Lab Scanned Report LAB OTHER CAROLINA THOMPSON MD Jul 05, 2019 09:28
[2019-07-05 12:03] VITALS: BP 119/74
--- NOTE | 2019-07-06 11:20 | REP ---
IR Ultrasound and fluoroscopy-guided port placement. IR Ultrasound of the neck. IR Moderate sedation. Clinical information: Anal cancer. Physician: Dr. Hooker. Procedure: The patient was advised of the benefits, risks, and alternatives of the procedure and informed consent was obtained. A time-out was performed with verification of the patient's name, MRN, site of procedure and type of procedure to be performed. The patient was positioned in the supine position on the angiographic table. The site was prepped and draped in the usual sterile fashion. Moderate sedation was performed by the physician including the presence of an independent trained observer who assisted and monitored the patient's level of consciousness and physiologic status. Following the administration of fentanyl and Versed, the physician spent 45 minutes of continuous face to face time with the patient. Ultrasound of the neck reveals a patent and compressible right internal jugular vein. A earrings fabricator radiograph reveals no gross abnormality. The neck and anterior chest wall were anesthetized with lidocaine. The right internal jugular vein was accessed using a microintroducer needle under ultrasound guidance, via a lateral approach. An 018 wire was advanced into the superior vena cava, the needle was removed and a microsheath was placed. An Amplatz wire was then passed into the inferior vena cava. An incision at the internal jugular vein access site and anterior chest wall were made using a scalpel. An incision was made at the anterior chest wall. A small pocket was created using a combination of blunt and sharp dissection. A tunneling device was then used to pass the catheter from the pocket to the neck puncture site. An 8-K[place] Angio dynamics Smart power port was then positioned in the pocket. The catheter was then measured and cut. The introducer sheath was exchanged for a peel-away sheath. The catheter was passed through the peel-away sheath into the internal jugular vein and the peel-away sheath was removed. The port tip was positioned at the cavoatrial junction. The port was then accessed with a Bolanos needle. The port flushes and aspirates well. The puncture site in the neck was closed. The chest wall incision was then closed with 2-0 Vicryl and 4-0 Monocryl. Glue and Steri-Strips were applied. A sterile dressing was then applied. The patient tolerated the procedure well and was returned to the PRU in stable condition. Estimated blood loss: <5 ml. Complications: None. Conclusion: 1. Successful placement of an 8-Kisw[place] Angio dynamics Smart power port via the right internal jugular vein. The port is ready for immediate use. 2. Patient to follow up in IR clinic in 2 weeks. Thank you for this referral. Electronically Signed by Laura Hooker MD 07/06/2019 11:19 A
== END ==
LOC: M IRPRO 08:09
PROVIDERS: ATTEND Radiology Diagnostic Radiology
DX: C20 Malignant neoplasm of rectum (principal)
CPT/HCPCS: 36561; 99152; 99153; C1769; C1788; C1894; J1200; J1642; J1644; J2250; J3010; J3370

== ENCOUNTER → 2019-07-09 | Outpatient (CLI) | payer BC ==
[~2019-07-09] MED LIST changes: -LIDOCAINE 1% MDV 20ML VIAL As Ordered ONE; -MIDAZOLAM INJ 2 MG/2 ML VIAL (J2250) As Ordered ONE; -VANCOMYCIN HCL 500 MG/10 ML VIAL (J3370) As Ordered ONE; -diphenhydrAMINE INJ 50MG/ML VIAL (J1200) As Ordered ONE; -fentaNYL 100 MCG/2 ML INJECTION (J3010) As Ordered ONE
--- NOTE | 2019-07-09 16:48 | REP ---
PET/CT: History: Staging anal carcinoma. Comparisons: Comparison CT study abdomen and pelvis and chest June 25, 2019. TECHNIQUE: 50 minutes following the intravenous injection of a 9.01 mCi dose of F-18 FDG, three-dimensional PET scintigraphy is acquired from the skull base to the proximal thighs. Triplanar noncontrast CT scanning is acquired through the same anatomic range for attenuation correction, and image registration with scan parameters optimized to minimize radiation exposure to the patient. PET scintigraphy and CT datasets were fused and displayed on a workstation with multiplanar and projection display capability. PET/CT Findings: Head and neck soft tissues are unremarkable. There is no suspicious skeletal hypermetabolic uptake. No abnormal pulmonary parenchymal hypermetabolic uptake is seen. No hypermetabolic machelle uptake is seen in the chest. No abnormal adrenal or hepatic uptake is seen. No abnormal upper abdominal retroperitoneal machelle uptake is observed. In pelvis, there is hypermetabolic uptake in an elongate segment of the anus and rectum. This measures approximately 9.5 cm in craniocaudal span. Maximum standard uptake value within this area is 33.50. The perirectal adenopathy observed on recent CT study shows hypermetabolic uptake as well with a right perirectal lymph node showing maximum standard uptake value of 13.7 and a posterior and right-sided perirectal/presacral lymph node maximum standard uptake value 4.77. A left perirectal lymph node at mid pelvic level has maximum standard uptake value 9.49. No other abnormal machelle hypermetabolic uptake is seen. Impression: Elongate segment of anorectal hypermetabolic uptake associated with perirectal hypermetabolic adenopathy. No other evidence of metastatic disease. Electronically Signed by Lc Arreaga MD 07/09/2019 05:10 P
== END ==
LOC: M PLARAD 08:20
PROVIDERS: ATTEND Internal Medicine Hematology
DX: C21.0 Malignant neoplasm of anus, unspecified (principal)
CPT/HCPCS: 78815; A9552

== ENCOUNTER → 2019-08-02 | Outpatient (RCR) | payer BC ==
--- NOTE | 2019-07-17 14:28 | RADONC ---
RADIATION ONCOLOGY SIMULATION NOTE: DATE: 07/17/2019 CHART NUMBER: [id number] Mr. Gallego was taken to the CT scan for CT simulation of his anal field. CT was accomplished without difficulty or discomfort. Radiation treatment planning is underway and radiation treatments will begin subsequently. An immobilization device was created without difficulty or discomfort. It will be used throughout the course of treatment. I was physically present throughout the course of CT simulation for Mr. Gallego.
--- NOTE | 2019-07-24 08:08 | RADONC ---
RADIATION ONCOLOGY PROGRESS NOTE DATE: 07/23/2019 CHART #: [id number] Mr. Gallego underwent his first fraction of radiation today for a dose of 180 cGy to his anus. His treatment was tolerated without difficulty or discomfort. REVIEW OF SYSTEMS: The patient's review of systems is unchanged. He does have some difficulties with bowel movements. Denies nausea, vomiting, fevers, chills, night sweats, diplopia, headaches, anxiety or depression, anorexia, weight loss, visual disturbances, chest pain, urinary or bowel difficulties, bone pain, or neurological problems. PHYSICAL EXAMINATION: Clearly showed no evidence of radiation change present. This was his first fraction of treatment. His physical exam is otherwise unchanged. ASSESSMENT: Mr. Gallego tolerated his first fraction of radiation well. He will continue with treatments as scheduled.
--- NOTE | 2019-07-31 08:55 | RADONC ---
RADIATION ONCOLOGY PROGRESS NOTE DATE OF SERVICE: 07/30/2019 CHART NUMBER: [id number]. PROGRESS NOTE: Mr. Gallego is presently at a dose of 1080 cGy to his anus and is tolerating treatments quite well at this point with no complaints related to his radiation therapy. He is having no rectal or anal pain. He is having no difficulties at all with the treatment. REVIEW OF SYSTEMS: The patient's review of systems is noncontributory. He denies nausea, vomiting, fevers, chills, night sweats, diplopia, headaches, anxiety or depression, anorexia, weight loss, visual disturbances, chest pain, urinary or bowel difficulties, bone pain, or neurological problems. PHYSICAL EXAMINATION: The patient's skin is in excellent condition with no evidence of moist or dry desquamation. The remainder of his physical exam remains unchanged. Mr. Gallego is tolerating treatments quite well, and radiation will continue as scheduled.
[~2019-08-02] MED LIST changes: +ONDA8TAB10 PO; +PERC5TAB12 PO
== END ==
LOC: M ONCR 07-17 13:53
PROVIDERS: ATTEND Radiology Radiation Oncology
DX: C21.0 Malignant neoplasm of anus, unspecified (principal)

== ENCOUNTER 2019-08-28 13:51 | Outpatient (RCR) | payer BC ==
--- NOTE | 2019-08-09 09:28 | RADONC ---
RADIATION ONCOLOGY PROGRESS NOTE DATE: 08/06/2019 CHART NUMBER: [id number] PROGRESS NOTE: Mr. Gallego is presently at a dose of 1980 cGy to his anus and is tolerating treatments quite well at this point with no significant difficulties related to his radiation therapy other than some tenderness. REVIEW OF SYSTEMS: The patient's review of systems is positive for anal tenderness but is otherwise noncontributory. Denies nausea, vomiting, fevers, chills, night sweats, diplopia, headaches, anxiety or depression, anorexia, weight loss, visual disturbances, chest pain, urinary or bowel difficulties, bone pain, or neurological problems. PHYSICAL EXAMINATION: The patient's skin overall is in good condition with no evidence of moist or dry desquamation. The remainder of his physical exam remains unchanged. Mr. Gallego is tolerating treatments quite well and radiation will continue as scheduled.
--- NOTE | 2019-08-15 06:31 | RADONC ---
RADIATION ONCOLOGY PROGRESS NOTE DATE: 08/13/2019 CHART #: [id number] Mr. Gallego is presently at a dose of 2880 cGy to his anus and is tolerating treatments quite well at this point with no significant difficulties related to his radiation therapy other than some anal and rectal discomfort. REVIEW OF SYSTEMS: The patient's review of systems is positive for some anal discomfort but is otherwise noncontributory. Denies nausea, vomiting, fevers, chills, night sweats, diplopia, headaches, anxiety or depression, anorexia, weight loss, visual disturbances, chest pain, urinary or bowel difficulties, bone pain, or neurological problems. PHYSICAL EXAMINATION: The patient's skin overall is in good condition with no evidence of moist or dry desquamation. The remainder of the physical exam remains unchanged. Mr. Gallego is tolerating treatments quite well and radiation will continue as scheduled.
--- NOTE | 2019-08-23 08:13 | RADONC ---
RADIATION ONCOLOGY PROGRESS NOTE: DATE: 08/20/2019 CHART NUMBER: [id number] Mr. Gallego is presently at a dose of 3780 cGy to his anus and is having pain upon defecation. He also has some discharge. He is using Proctofoam. He has a prescription for Percocet but has not been taking any pain medication. REVIEW OF SYSTEMS: The patient's review of system is positive for anal and rectal pain as well as discharge but is otherwise, noncontributory. He denies nausea, vomiting, fevers, chills, night sweats, diplopia, headaches, anxiety or depression, anorexia, weight loss, visual disturbances, chest pain, urinary or bowel difficulties, bone pain, or neurological problems. PHYSICAL EXAMINATION: The patient's skin shows some erythema and tanning present. There is also dry desquamation. The remainder of his physical exam remains unchanged. Mr. Gallego is continuing with his radiation at this point. He has been given skin care instructions and we made clear that he should take a stool softener if he is going to begin taking his pain medication. In the meantime, radiation will continue as scheduled.
[~2019-08-28 13:51] MED LIST changes: -GARL500C10 PO; +GARL500C2 PO; +MULTCAP PO; +PROC1AER16 PR
[2019-08-28] MEDS ORDERED: SILV40CR EXT (14:05)
== END 2019-09-02 ==
LOC: M ONCR 13:51
PROVIDERS: ATTEND Radiology Radiation Oncology
DX: C21.0 Malignant neoplasm of anus, unspecified (principal)

== ENCOUNTER 2019-09-07 13:53 | Outpatient (RCR) | payer BC ==
--- NOTE | 2019-09-05 09:42 | RADONC ---
RADIATION ONCOLOGY PROGRESS NOTE DATE OF SERVICE: 09/27/2018 CHART NUMBER: [id number] PROGRESS NOTE: Mr. Gallego is thus far at a dose of 4500 cGy to his anus. He presents today complaining of pain around the perianal area and groin areas. REVIEW OF SYSTEMS: The patient's review of systems is positive for perianal discomfort but is otherwise noncontributory. He denies nausea, vomiting, fevers, chills, night sweats, diplopia, headaches, anxiety or depression, anorexia, weight loss, visual disturbances, chest pain, urinary or bowel difficulties, bone pain, or neurological problems. PHYSICAL EXAMINATION: The patient has areas of moist desquamation in the groin region, as well as in the perianal region. The remainder of his physical exam remains unchanged. I have given the patient a rest at least until . He has been instructed on skin care and is using triple antibiotic ointment. In addition, I have sent in a prescription for Silvadene to be applied topically t.i.d. to these areas. The patient will be off at least until , at which time we will reevaluate. Otherwise he may remain on rest until Tuesday. The patient has narcotic pain medication at home, as well, and has been instructed to use a stool softener if he takes any other pain medication. Once again, the patient will be taking cool baths/sitz baths, as well as using Silvadene and antibiotic ointment. He will be on rest for now and has been given pain medication, as well as stool softeners. We will continue to follow him closely. He may resume on . Otherwise, he will be off until next Tuesday.
[~2019-09-07 13:53] MED LIST changes: +SILV40CR EXT
--- NOTE | 2019-09-09 10:32 | RADONC ---
RADIATION ONCOLOGY PROGRESS NOTE DATE: 09/03/2019 CHART NUMBER: [id number] PROGRESS NOTE: Mr. Gallego is presently at a dose of 4680 cGy to his anus and has resumed radiation today after being off last week. His previous treatment was on 08/24/2019. The patient came in today reporting most of the sites of skin reaction have improved somewhat and our less uncomfortable. He does report that he has irritation and some blood at the tip of his penis. He reports that sometimes it clark when he urinates but most of the time is without a problem. He is concerned however. The skin over the perianal area however has improved somewhat of the groin regions. REVIEW OF SYSTEMS: The patient's review of systems is positive for some discomfort and red tip to his penis as well as some continued skin reaction in several sites of the radiation field. It is otherwise noncontributory. Denies nausea, vomiting, fevers, chills, night sweats, diplopia, headaches, anxiety or depression, anorexia, weight loss, visual disturbances, chest pain, urinary or bowel difficulties, bone pain, or neurological problems. PHYSICAL EXAMINATION: There continues to be some desquamation and skin reaction in the groin areas as well as the perianal region. This is better than when last seen last week. The tip of his penis has an erythematous red area which has some blood on a drop of blood on his underwear. The remainder of his physical exam remains unchanged. Mr. Gallego only has four fractions left after today and I have recommended that he continue treatment. He has been given skin care instructions and indeed is using some Silvadene on the tip of his penis. I have also recommended that he try some vitamin A and D ointment or perhaps aloe or vitamin E ointment on that area. Once again, I would recommend reinitiating radiation at this point since he has almost finished and we will continue to follow him closely.
--- NOTE | 2019-09-12 14:38 | RADONC ---
RADIATION ONCOLOGY TREATMENT SUMMARY DATE: 09/07/2019 CHART NUMBER: [id number] DIAGNOSIS: Anal cancer. STAGE: III A, T2, N1, M0. ECOG PERFORMANCE STATUS: 0 TREATMENT SUMMARY: Mr. Gallego is a very pleasant 59-year-old white male with the diagnosis of a squamous cell carcinoma of the anus who presented to us for consideration of definitive external beam radiation therapy with IMRT/IGRT. We treated the patient to his anus for a total dose of 5400 cGy delivered in 30 fractions of 180 cGy each over 46 elapsed days from 07/23/2019 through 09/07/2019. The patient's anus was treated on the linear accelerator utilizing a 6 MV photon beam via IMRT/IGRT. The noninvolved lymph nodes were treated to a dose of 4500 cGy in 150 cGy fractions. Mr. Gallego tolerated his treatments quite well, although he did have a brisk skin reaction, which was treated with Silvadene. I have scheduled the patient to see me again in 1 month for further followup. He will also continue to be followed by his other physicians as well. Thank you for allowing us to participate in the care of this very pleasant gentleman. If I could be of any further assistance or provide you with any information, please feel free to contact me anytime. As always, warm regards. cc: JOSETTE Abraham DO Jonathan Harrison, MD
== END 2019-10-02 ==
LOC: M ONCR 13:53
PROVIDERS: ATTEND Radiology Radiation Oncology
DX: C21.0 Malignant neoplasm of anus, unspecified (principal)

== ENCOUNTER → 2019-10-01 | Outpatient (CLI) | payer BC ==
[~2019-10-01] MED LIST changes: +GASTROGRAFIN SOLUTION 30ML (Q9963) As Ordered ONE; +ISOVUE-370 76% 100ML VIAL As Ordered ONE
--- NOTE | 2019-10-01 14:01 | REP ---
Clinical: History of rectal carcinoma. Technique: Axial contrast enhanced images from the thoracic inlet to the upper abdomen (followed by CT of the abdomen and pelvis) using 100 ml Isovue 370 intravenous contrast material. Coronal and sagittal re-formations obtained. Comparison: 06/25/2019. Findings: The bilateral lung izquierdo are well-aerated and clear. No consolidation, nodule or mass lesion noted. No pleural effusion. No pneumothorax. Tracheobronchial tree is patent. No axillary, hilar, or mediastinal adenopathy. Thoracic aorta and pulmonary vasculature appear relatively normal. Atherosclerotic changes to the coronary arteries noted without cardiomegaly or pericardial effusion. Cedgnm-V-Ulrg identified with tip in the right atrium. Heterogeneous thyroid gland with nodule and cyst unchanged. Musculoskeletal structures are intact without obvious acute osseous abnormality. Impression: 1. No acute mediastinal or pleuroparenchymal process. No evidence for metastatic disease. Electronically Signed by Manoj Garza MD 10/01/2019 01:53 P
--- NOTE | 2019-10-01 14:12 | REP ---
Clinical: History of rectal carcinoma. Technique: Axial contrast enhanced images from the lung bases to the pubic symphysis using oral (per protocol) and 100 ml Isovue 370 intravenous contrast material with coronal and sagittal re-formations. Delayed images of the abdomen obtained. Comparison: 06/25/2019. Findings: Liver, spleen, pancreas, bilateral adrenal glands and kidneys are normal. Cholelithiasis noted. The enteric system is without obstruction or acute inflammatory process. Normal terminal ileum and appendix are identified in the right lower quadrant. The rectosigmoid colon is grossly unremarkable by CT evaluation and without obvious significant focal mass lesion. Previously noted perirectal adenopathy has significantly decreased/resolved. Further evaluation of the pelvis demonstrates stable prostatomegaly and relatively normal appearance to the bladder. Small fat containing inguinal hernias noted (right greater than left). No ascites. No retroperitoneal adenopathy. Abdominal aorta and vasculature without aneurysm or dissection. Musculoskeletal structures are intact without new osseous abnormality. Impression: 1. Previously noted perirectal adenopathy and fat stranding has near completely resolved. No obvious mass lesion identified. No ascites. 2. Cholelithiasis. 3. Stable prostatomegaly Electronically Signed by Manoj Garza MD 10/01/2019 02:02 P
== END ==
LOC: M RAD 11:36
PROVIDERS: ATTEND Internal Medicine Hematology & Oncology
DX: C20 Malignant neoplasm of rectum (principal); K80.20 Calculus of gallbladder without cholecystitis without obstruction; N40.0 Benign prostatic hyperplasia without lower urinary tract symptoms
CPT/HCPCS: 71260; 74177; Q9963; Q9967

== ENCOUNTER → 2019-10-10 | Outpatient (CLI) | payer BC ==
[~2019-10-10] MED LIST changes: -GASTROGRAFIN SOLUTION 30ML (Q9963) As Ordered ONE; -ISOVUE-370 76% 100ML VIAL As Ordered ONE
--- NOTE | 2019-10-18 18:49 | RADONC ---
RADIATION ONCOLOGY FOLLOWUP DATE: 10/10/2019 CHART NUMBER: [id number] DIAGNOSIS: Anal cancer. STAGE: III A, T2, N1, M0. ECOG PERFORMANCE STATUS: Zero. FOLLOWUP NOTE: Mr. Gallego is a very pleasant 59-year-old white male with a diagnosis of a squamous cell carcinoma of the anus, who is presenting to us today for routine followup visit 1 month post completion of external beam radiation therapy. The patient presents today reporting that he is doing extremely well. He reports that he has a good appetite and is eating quite a bit. He is having no other problems. The patient's review of systems is noncontributory. He denies nausea, vomiting, fevers, chills, night sweats, diplopia, headaches, anxiety or depression, anorexia, weight loss, visual disturbances, chest pain, urinary or bowel difficulties, bone pain, or neurological problems. PHYSICAL EXAMINATION: The patient is a well-developed, well-nourished white male in no acute distress. HEENT: Exam is normocephalic, atraumatic. Extraocular movements are intact. There is no palpable cervical, supraclavicular, infraclavicular, axillary or inguinal lymphadenopathy present. His lungs are clear to auscultation and percussion. A perianal examination reveals normal perianal skin. There is no evidence of moist or dry desquamation. Rectal examination fails to reveal any significant nodularity. He was quite tender, and a full rectal examination was not done at this time. The patient is scheduled to see his surgeon, Dr. Tucker Hyde DO on October 18, 2019 further anal/rectal evaluation. He was seen by his medical oncologist, Dr. Anthony Parker MD on October 03, 2019. I have set him up for routine followup in our office in 3 months' time, and he will continue his follow up with his other physicians in the meantime. cc: JOSETTE Abraham DO Gerald Colvin, MD
== END ==
LOC: M ONCR 14:31
PROVIDERS: ATTEND Radiology Radiation Oncology
DX: C21.0 Malignant neoplasm of anus, unspecified (principal); Z92.3 Personal history of irradiation

== ENCOUNTER → 2019-10-22 | Outpatient (CLI) | payer BC ==
[~2019-10-22] MED LIST changes: +PROHANCE 279.3MG/ML 15ML VIAL As Ordered ONE; +PROHANCE 279.3MG/ML 5ML VIAL As Ordered ONE
--- NOTE | 2019-10-22 10:56 | REP ---
MRI PELVIS WITHOUT AND WITH IV GADOLINIUM: HISTORY: Rectal carcinoma. Status post external beam radiation therapy for squamous cell carcinoma of the anus. Comparison CT study October 01, 2019. Comparison PET/CT study July 09, 2019. TECHNIQUE: Axial coronal and sagittal imaging planes utilized. T1- and T2-weighted scans were included with and without fat saturation. Gadolinium enhancement dose is 20 mL of intravenous ProHance. MRI FINDINGS: There is no MR evidence of visible adenopathy. This has improved. There is a normal appearing right inguinal lymph node measuring 6 mm in short axis dimension which is unchanged from June 25, 2019 study. The previously noted perirectal adenopathy is no longer visible. There is mild mural thickening in the rectum which may be post radiation edema. No mass lesion is visible in the anus on today's pelvic MRI images, or within the rectum. No free fluid is noted. No abdominal wall defect or bony lesion is seen. Postcontrast images shows no additional finding. IMPRESSION: Previously noted mass and adenopathy are no longer visible. Electronically Signed by Lc Areraga MD 10/22/2019 04:16 P
== END ==
LOC: M RAD 07:50
PROVIDERS: ATTEND Internal Medicine Hematology & Oncology
DX: C20 Malignant neoplasm of rectum (principal)
CPT/HCPCS: 72197; A9576

== ENCOUNTER → 2020-01-09 | Outpatient (CLI) | payer BC ==
[~2020-01-09] MED LIST changes: -PROHANCE 279.3MG/ML 15ML VIAL As Ordered ONE; -PROHANCE 279.3MG/ML 5ML VIAL As Ordered ONE
--- NOTE | 2020-01-09 15:49 | RADONC ---
Radiation Oncology Hx/FUP Radiation Oncology Hx/FUP Date of Service: Jan 09, 2020 Pt Identifier Rc Gallego is a 59 year old male with a history of cT2N1 stage IIIa anal cancer he completed chemoradiation to 54 Gy in 30 fractions on 09/07/19. Diagnosis/Treatment History Oncologic History 2018, when he first noted intermittent hematochezia. He was evaluated by JOSETTE Mei, in mid-winter 2018-2020, and was then referred to Tucker Hyde DO, of surgery at [facility]. Mr. Gallego has a long history of anal hemorrhoids, and the patient assumed that the bleeding was due to hemorrhoids. However, when examined by Dr. Hyde, a mass was palpable within finger length of the anal verge. The patient was taken to colonoscopy on June 20, 2019 with findings of poorly differentiated, non keratinizing squamous cell carcinoma (specimen [id number]). He was then referred to Medical Oncology emergently. He was seen by Medical Oncology on June 21, 2019, at which time he reported no significant pain, but expressed appropriate concern regarding his diagnosis. PET/CT scan showed only localized disease, and he underwent placement of a mediport. He then began the combination of Mitomycin C on day #1 of therapy, together with a 96 hour infusion of 5-Fluorouracil and initiation of external beam radiation therapy, all starting on July 23, 2019. Completed 54 Gy in 30 fractions on 09/07/19. MRI pelvis from 10/22/19 with CR. Interval History Feels well. Some intermittent tenesmus with flatus but otherwise normal defecation. No BRBPR. No hemorrhoids. No skin concerns. Appetite is good weight is stable. Energy levels have returned to normal. Current Therapy Surveillance Stage [id number] SCC HPV+ Stage IIIa Social History: Never smoker Social drinker Allergies / Meds Allergies: Coded Allergies: Penicillins (Verified Allergy, Severe, anaphylaxis, 01/04/20) Home Meds Reported Medications Multivitamin (Multivitamins) 1 Each Capsule, 1 CAP PO DAILY for 30 Days, #30 CAP 08/07/19 Lisinopril (Lisinopril) 20 Mg Tablet, 20 MG PO QHS 12/08/18 Aspirin (Aspirin EC) 81 Mg Tab, 81 MG PO DAILY, TAB 05/08/15 Discontinued Scripts Silver Sulfadiazine (Silvadene) 400 Gm Cream..g., 400 GRAMS EXT TID for apply to anal skin, #1 GRAMS 5 Refills Prov:Tucker Estes 08/28/19 Review of Systems Review of Systems Constitutional: Denies: ROS Unabtainable, Chills, Fever, Malaise, Night Sweats, Weakness, Fatigue, Weight Loss, Lethargy, Normal appetite, Other symptoms Eyes: Denies: Pain, Vision change, Conjunctivae inflammation, Eyelid inflammation, Redness, Other HEENT: Denies: Head Aches, Ear Pain, Dysphagia, Sinus Congestion, Post Nasal Drip, Sore Throat, Epistaxis, Other Symptoms Skin: Denies: Rash, Lesions, Jaundice, Bruising, Other Breast: Denies: New Breast Lumps / Masses, Nipple Retraction, Nipple Discharge, Breast Skin Changes, Breast Pain or Tenderness, Other Breast Complaints Pulmonary: Denies: Dyspnea, Cough, Pleuritic Chest Pain, Other Symptoms Cardiovascular: Denies: Chest Pain, Palpitations, Orthopnea, Paroxysmal Noc. Dyspnea, Edema, Lt Headedness, Other Symptoms Gastrointestinal: Denies: Nausea, Vomiting, Abdominal Pain, Diarrhea, Constipation, Melena, Hematochezia, Other Symptoms Genitourinary: Denies: Dysuria, Frequency, Incontinence, Hematuria, Retention, Other Symptoms Hematologic: Denies: Bruising, Bleeding Excessively, Petecchia, Purpura, Enla rged Lymph Nodes, Other Hematologic Endocrine: Denies: Polydipsia, Polyphagia, Polyuria, Heat Intolerance, Cold Intolerance, Other Endocrine Sx Musculoskeletal: Denies: Neck pain, Shoulder pain, Arm pain, Back pain, Hand pain, Leg pain, Foot pain, Joint pain, Muscle pain, Spasms, Gout, Joint sweling, Muscle stiffness, Midthoracic pain, Other Psych: Denies: Mood Normal, Anxiety, Depression, Memory Issues, Thoughts of Self Harm, Anger, Thoughts of harming Other, Other Psych Physical Examination Vital Signs Wt 236 lb T 97.2 P 92 RR 18 BP 122/76 O2 98% Pain 0 Fatigue 0 General Exam: Positive: Alert, Cooperative, No Acute Distress Eye Exam: Positive: PERRLA, EOMI ENT EXAM: Positive: Atraumatic, Pharynx Normal Neck Exam: Positive: Supple Chest Exam: Positive: Clear to auscultation Heart Exam: Positive: Rate Normal, Regular Rhythm Abdomen Exam: Positive: Normal bowel sounds, Soft; Negative: Tenderness Male Exam: Positive: Normal Sphincter Tone; Negative: Mass (No inguinal adenopathy BL. No perianal lesions. MARJAN normal. Perianal skin intact without any RT related changes apparent.) Extremity Exam: Negative: Edema Skin Exam: Positive: Nl turgor and temperature; Negative: Breakdown Neuro Exam: Positive: Normal Gait, Normal Speech, Cranial Nerves 3-12 NL Psych Exam: Positive: Mental status NL, Mood NL; Negative: Anxiety Diagnostic and Laboratory Diagnostic Review Radiologic images, relevant labs and pathology reports were personally reviewed and discussed with Mr. Gallego. Assessment and Plan Impression Assessment Mr. Gallego is a 59 year old male with a history of cT2N1 stage IIIa anal cancer he completed chemoradiation to 54 Gy in 30 fractions on 09/07/19. His pelvic MRI from 10/22/19 was negative. He is scheduled to have a flexible sigmoidoscopy in the coming weeks. His exam today is negative. I reviewed that routine imaging is not indicated given his negative exam and prior scan from October with a CR evident. I recommend he continue to see someone every 3 months for the first 2 years as this is the window in which most recurrences happen. Appointments could then be spaced further out. The NCCN guidelines recommend annual CT chest abdomen and pelvis, which I am happy to order if there is any question of recurrence, or medical oncology could do the same as well. He will see Dr. Reaves in February, and so I will see him after that appointment in approximately 4 months time in May 2020 in effort to split up his follow up (she could then see him ~3 months after me in August 2020). He is agreeable to the plan for alternating follow up. Plan Follow up in 4 months Mr. Gallego was encouraged to call with questions or concerns in the interim period. WES RODRIGUEZ MD Jan 09, 2020 15:49
== END ==
LOC: M ONCR 14:19
PROVIDERS: ATTEND General Practice
DX: C21.0 Malignant neoplasm of anus, unspecified (principal)

== ENCOUNTER → 2020-01-11 | Outpatient (CLI) | payer BC | LOC: M LABSMTC 09:58 | PROVIDERS: ATTEND Anesthesiology | DX: Z01.812 Encounter for preprocedural laboratory examination (principal); Z20.828 Contact with and (suspected) exposure to other viral communicable diseases | CPT/HCPCS: C9803; U0003 ==

== ENCOUNTER 2020-01-16 06:53 | Day surgery (SDC) | payer BC ==
[~2020-01-16] VITALS: Ht 188 cm; Wt 106.6 kg
[2020-01-16] MEDS ORDERED: NS 1,000 ML IV ONE (07:00)
[2020-01-16] MEDS ORDERED: propofoL 200 MG/20 ML VIAL As Ordered ONE ×2 (07:08→08:30)
[2020-01-16] MEDS ORDERED: LIDOCAINE 2% 100MG/5ML SDV (FOR ANES.) As Ordered ONE (07:08)
--- NOTE | 2020-01-16 08:41 | ROOR ---
Patient Name: Rc Gallego Procedure Date: 01/16/2020 8:19 AM Date of : 1960 Age: 59 Room: [facility] Gender: Male Note Status: Finalized Procedure: Colonoscopy Indications: High risk colon cancer surveillance: Personal history of colon cancer Providers: DO Sallie Holland MD: Leona Olsen NP Requesting Provider: Medicines: Propofol per Anesthesia Complications: No immediate complications. Procedure: Pre-Anesthesia Assessment: - Prior to the procedure, a History and Physical was performed, and patient medications and allergies were reviewed. The patient is competent. The risks and benefits of the procedure and the sedation options and risks were discussed with the patient. All questions were answered and informed consent was obtained. Patient identification and proposed procedure were verified by the physician, the nurse, the anesthesiologist and the biometric fingerprinting technician in the endoscopy suite. Mental Status Examination: alert and oriented. Airway Examination: normal oropharyngeal airway and neck mobility. Respiratory Examination: clear to auscultation. CV Examination: normal. Prophylactic Antibiotics: The patient does not require prophylactic antibiotics. Prior Anticoagulants: The patient has taken no previous anticoagulant or antiplatelet agents. ASA Grade Assessment: II - A patient with mild systemic disease. After reviewing the risks and benefits, the patient was deemed in satisfactory condition to undergo the procedure. The anesthesia plan was to use monitored anesthesia care (MAC). Immediately prior to administration of medications, the patient was re-assessed for adequacy to receive sedatives. The heart rate, respiratory rate, oxygen saturations, blood pressure, adequacy of pulmonary ventilation, and response to care were monitored throughout the procedure. The physical status of the patient was re-assessed after the procedure. The Colonoscope was introduced through the anus and advanced to the transverse colon for evaluation. This was the intended extent. The colonoscopy was performed without difficulty. The patient tolerated the procedure well. Findings: A less than 5 mm polyp was found in the transverse colon. The polyp was hyperplastic. The polyp was removed with a cold biopsy forceps. Resection and retrieval were complete. Estimated blood loss was minimal. An area of mildly congested mucosa was found at the anus and in the rectum. This was biopsied with a cold forceps for histology. Estimated blood loss was minimal. Impression: - One less than 5 mm polyp in the transverse colon, removed with a cold biopsy forceps. Resected and retrieved. - Congested mucosa at the anus and in the rectum. Biopsied. Recommendation: - Patient has a contact number available for emergencies. The signs and symptoms of potential delayed complications were discussed with the patient. Return to normal activities tomorrow. Written discharge instructions were provided to the patient. - Repeat colonoscopy in 3 - 5 years for surveillance based on pathology results. - Return to my office at appointment to be scheduled. Tucker Hyde DO 01/16/2020 8:41:22 AM Electronically signed by Tucker Hyde DO Number of Addenda: 0 Note Initiated On: 01/16/2020 8:19 AM Estimated Blood Loss: Estimated blood loss was minimal.
[2020-01-16 08:57] VITALS: BP 109/64
== END 2020-01-16 09:10 | disposition home or self-care (01) ==
LOC: M OPP 06:53
PROVIDERS: ATTEND Surgery
DX: K63.5 Polyp of colon (principal); K62.89 Other specified diseases of anus and rectum; Z85.038 Personal history of other malignant neoplasm of large intestine; I10 Essential (primary) hypertension; Z79.82 Long term (current) use of aspirin; Z79.899 Other long term (current) drug therapy; Z92.3 Personal history of irradiation; Z92.21 Personal history of antineoplastic chemotherapy

== ENCOUNTER → 2020-04-08 | Outpatient (REF) | payer BC ==
[2020-04-08 11:33] LABS: BASO % 0.7 % (0.0-1.0); EOS # 0.2 10^3/uL (0.0-0.5); EOS % 4.8 % (0.0-3.0); HEMATOCRIT 47.1 % (42.0-52.0); HEMOGLOBIN 15.7 g/dl (13.5-17.5); LYMPH # 0.6 10^3/uL (1.5-5.0); LYMPH % 13.2 % (24.0-44.0); MEAN CORPUSCULAR HEMOGLOBIN 31.3 pg (27.0-33.0); MEAN CORPUSCULAR HGB CONC 33.3 g/dl (32.0-36.5); MEAN CORPUSCULAR VOLUME 93.8 fl (80.0-96.0); MONO # 0.5 10^3/uL (0.0-0.8); NEUTROPHILS # 3.3 10^3/uL (1.5-8.5); NEUTROPHILS % 70.6 % (36.0-66.0); PLATELET COUNT, AUTOMATED 184 10^3/uL (150-450); RED BLOOD COUNT 5.02 10^6/uL (4.30-6.10); WHITE BLOOD COUNT 4.6 10^3/uL (4.0-10.0)
[2020-04-08 11:43] LABS: HEMOGLOBIN A1c 4.8 %
[2020-04-08 12:09] LABS: ALBUMIN 3.6 GM/DL (3.2-5.2); ALT/SGPT 16 U/L (12-78); BILIRUBIN,TOTAL 0.9 MG/DL (0.2-1.0); BLOOD UREA NITROGEN 14 MG/DL (7-18); CALCIUM LEVEL 9.9 MG/DL (8.5-10.1); CARBON DIOXIDE LEVEL 30 MEQ/L (21-32); CHLORIDE LEVEL 109 MEQ/L (98-107); CHOLESTEROL LEVEL 151 MG/DL (<200); CHOLESTEROL RISK RATIO 4.441 (<5); CREATININE FOR GFR 1.03 MG/DL (0.70-1.30); GLOMERULAR FILTRATION RATE > 60.0 (>56); GLUCOSE, FASTING 103 MG/DL (70-100); HDL CHOLESTEROL 34 MG/DL (>40); LDL CHOLESTEROL 76 MG/DL (<100); NON-HDL-C 117 MG/DL; POTASSIUM SERUM 4.2 MEQ/L (3.5-5.1); SODIUM LEVEL 143 MEQ/L (136-145); TOTAL PROTEIN 6.3 GM/DL (6.4-8.2); TRIGLYCERIDES LEVEL 205 MG/DL (<150)
== END ==
LOC: M SFHCCLAY 07:55
PROVIDERS: ATTEND Nurse Practitioner Family
DX: Z00.00 Encounter for general adult medical examination without abnormal findings (principal); G47.30 Sleep apnea, unspecified; I10 Essential (primary) hypertension; E78.2 Mixed hyperlipidemia; Z13.1 Encounter for screening for diabetes mellitus

== ENCOUNTER → 2020-05-23 | Outpatient (CLI) | payer BC ==
[~2020-05-23] MED LIST changes: -CLIN150C14 PO; +CLIN150C15 PO; -LISI-538 PO; +LISI20TA33 PO
--- NOTE | 2020-05-23 16:29 | RADONC ---
Radiation Oncology Hx/FUP Radiation Oncology Hx/FUP Date of Service: May 23, 2020 Pt Identifier Rc Gallego is a 59 year old male seen for a followup visit today at the department of radiation oncology for a history of cT2N1 stage IIIa anal cancer he completed chemoradiation to 54 Gy in 30 fractions on 09/07/19. Diagnosis/Treatment History Oncologic History 2018, when he first noted intermittent hematochezia. He was evaluated by ANJALI MeiP, in mid-winter 2018-2020, and was then referred to Tucker Hyde DO, of surgery at [facility]. Mr. Gallego has a long history of anal hemorrhoids, and the patient assumed that the bleeding was due to hemorrhoids. However, when examined by Dr. Hyde, a mass was palpable within finger length of the anal verge. The patient was taken to colonoscopy on June 20, 2019 with findings of poorly differentiated, non keratinizing squamous cell carcinoma (specimen [id number]). He was then referred to Medical Oncology emergently. He was seen by Medical Oncology on June 21, 2019, at which time he reported no significant pain, but expressed appropriate concern regarding his diagnosis. PET/CT scan showed only localized disease, and he underwent placement of a mediport. He then began the combination of Mitomycin C on day #1 of therapy, together with a 96 hour infusion of 5-Fluorouracil and initiation of external beam radiation thera py, all starting on July 23, 2019. Completed 54 Gy in 30 fractions on 09/07/19. MRI pelvis from 10/22/19 with CR. CEA trend Item Value Date Time Carcinoembryonic Antigen 1.4 NG/ML 09/25/19 1059 Carcinoembryonic Antigen 5.0 NG/ML H 08/20/19 1021 Carcinoembryonic Antigen 3.5 NG/ML H 08/28/19 1420 Carcinoembryonic Antigen 1.2 NG/ML 03/07/20 1512 Carcinoembryonic Antigen 15.5 NG/ML H 06/21/19 1612 Carcinoembryonic Antigen 19.9 NG/ML H 07/23/19 1010 Interval History Rc is here reports he is feeling well, skiing and snowshoeing with his family this winter. Working. Appetite good weight stable. No rectal pain or pressure. Did have single bout of BRBPR associated with hard BM/straining couple weeks ago. Was small amount. Normal bowel movements otherwise. Current Therapy Surveillance Stage [id number] SCC HPV+ Stage IIIa Social History: Never smoker Social drinker Allergies / Meds Allergies: Coded Allergies: Penicillins (Verified Allergy, Severe, anaphylaxis, 01/04/20) Home Meds Reported Medications Multivitamin (Multivitamins) 1 Each Capsule, 1 CAP PO DAILY for 30 Days, #30 CAP 08/07/19 Lisinopril (Lisinopril) 20 Mg Tablet, 20 MG PO QHS 12/08/18 Aspirin (Aspirin EC) 81 Mg Tab, 81 MG PO DAILY, TAB 05/08/15 Review of Systems Review of Systems Constitutional: Denies: Chills, Fever, Weight Loss Eyes: Denies: Pain, Vision change HEENT: Denies: Head Aches Skin: Denies: Rash, Lesions Pulmonary: Denies: Dyspnea, Cough Cardiovascular: Denies: Chest Pain, Palpitations Gastrointestinal: Denies: Nausea, Vomiting, Abdominal Pain, Constipation, Melena Genitourinary: Denies: Dysuria, Frequency Hematologic: Denies: Bruising, Bleeding Excessively Endocrine: Denies: Cold Intolerance Musculoskeletal: Denies: Neck pain, Back pain Neurological: Denies: Weakness, Numbness, Incoordination Psych: Reports: Mood Normal Physical Examination Vital Signs Wt 243 T 98 P 54 RR 18 BP 122/76 O2 98% Pain 0 Fatigue 0 General Exam: Positive: Alert, Cooperative; Negative: No Acute Distress Eye Exam: Positive: PERRLA, EOMI ENT EXAM: Positive: Atraumatic Neck Exam: Positive: Supple Chest Exam: Positive: Clear to auscultation, Normal air movement Heart Exam: Positive: Rate Normal, Regular Rhythm Abdomen Exam: Positive: Normal bowel sounds, Soft; Negative: Tenderness Male Exam: Positive: Normal Genital Exam, Normal Prostate, Normal Sphincter Tone (No palpable lesions in the anal canal or rectal vault. There are post radiation skin pigmentation changes present in the perianal skin, mild hypopigementation and hyperpigmentation scattered some telangiectasias. No Adenopathy in the BL groin ); Negative: Lesions Extremity Exam: Negative: Edema Skin Exam: Positive: Nl turgor and temperature Neuro Exam: Positive: Normal Gait, Normal Speech, Cranial Nerves 3-12 NL Psych Exam: Positive: Mental status NL Diagnostic and Laboratory Diagnostic Review Radiologic images, relevant labs and pathology reports were personally reviewed and discussed with Mr. Gallego. Assessment and Plan Impression Assessment Mr. Gallego is a 59 year old male with a history of cT2N1 stage IIIa anal cancer he completed chemoradiation to 54 Gy in 30 fractions on 09/07/19. He is doing well without evidence of recurrence on exam today. He does have some late perianal skin sequelae of RT. He had a single episode of BRBPR which was self-limited and associated with straining bowel movement. I asked him to watch for frequent bleeding as this would be cause for concern. I encouraged him to use barrier wipes after defecating, due to the perianal skin changes present which can predispose to bleeding. He will see Dr. Reaves in 3 months time. I will see him in 6 months time, at which point I will order a CT abdomen pelvis for annual surveillance. Performance Status ECOG 0 Plan Follow up with me in [address] abdomen pelvis at that time Mr. Gallego was encouraged to call with questions or concerns in the interim period. Billing Statement Total time of [20] minutes was spent preparing for the visit [2], obtaining HPI [2], examining the patient [3], reviewing diagnostic tests [2], discussing management options [5], coordinating care [1], and writing this note [5]. WES RODRIGUEZ MD May 23, 2020 16:29
== END ==
LOC: M ONCR 12:56
PROVIDERS: ATTEND General Practice
DX: C21.0 Malignant neoplasm of anus, unspecified (principal)

== ENCOUNTER → 2020-06-27 | Outpatient (REF) | payer BC | LOC: M SFHCCLAY 12:58 | PROVIDERS: ATTEND Nurse Practitioner Family | DX: Z12.5 Encounter for screening for malignant neoplasm of prostate (principal) ==

== ENCOUNTER → 2020-09-29 | Outpatient (CLI) | payer BC ==
[~2020-09-29] MED LIST changes: +GASTROGRAFIN SOLUTION 30ML (Q9963) As Ordered ONE; +ISOVUE-370 76% 100ML VIAL As Ordered ONE; +MULT-90 PO
--- NOTE | 2020-09-29 15:54 | REP ---
INDICATION: ANAL CA FOLLOW UP. COMPARISON: Multiple the latest 10/01/2019 TECHNIQUE: Standard helical technique after the intravenous administration of 100 cc Isovue 370 and oral bowel preparatory contrast administration. FINDINGS: The liver, spleen, pancreas, adrenal glands, and kidneys are unchanged. Note is again made of cholelithiasis. The abdominal aorta and para-aortic regions are unchanged. No adenopathy has developed. There is no free fluid or free air. There is no significant change in the appearance of the bowel loops or the mesenteries. There is no free fluid or free air. There is no mass or adenopathy. The perirectal soft tissues and ischiorectal fossa are clear. Bone window technique throughout the examination shows the osseous structures to be stable and intact. IMPRESSION: There is no evidence of acute disease. There is cholelithiasis status quo. Findings as described above. <Electronically signed by Manuel Richards > 09/29/20 [id number]
--- NOTE | 2020-09-29 16:01 | REP ---
INDICATION: ANAL CA FOLLOW UP COMPARISON: Multiple the latest 10/01/2019 TECHNIQUE: Standard helical technique after the intravenous administration of 100 cc Isovue 370 FINDINGS: The mixed enhancing mass in the thyroid gland is unchanged. No mediastinal or hilar mass or adenopathy has developed. There are no pleural or pericardial effusions. The imaged osseous structures are stable and intact. Evaluation of the lung izquierdo shows shows no new abnormal nodules, masses, or opacities. IMPRESSION: Stable CT examination of the chest. There is no evidence of acute disease. Findings as described above. <Electronically signed by Manuel Richards > 09/29/20 [id number]
== END ==
LOC: M RAD 13:53
PROVIDERS: ATTEND Internal Medicine Medical Oncology
DX: C21.0 Malignant neoplasm of anus, unspecified (principal); K80.20 Calculus of gallbladder without cholecystitis without obstruction; E04.9 Nontoxic goiter, unspecified
CPT/HCPCS: 71260; 74177; Q9963; Q9967

== ENCOUNTER → 2020-10-13 | Outpatient (CLI) | payer BC ==
[~2020-10-13] MED LIST changes: -GASTROGRAFIN SOLUTION 30ML (Q9963) As Ordered ONE; -ISOVUE-370 76% 100ML VIAL As Ordered ONE
--- NOTE | 2020-10-13 13:36 | REP ---
INDICATION: THYROID NODULE ON CT. COMPARISON: Comparison is made with CT study of the chest from September 29, 2020 showing a 3 cm nodule in the isthmus of the thyroid eccentric slightly to the right.. TECHNIQUE: High-resolution bilateral thyroid sonography. FINDINGS: The thyroid isthmus measures 0.7 cm in thickness. Right lobe thyroid dimensions are 6.1 x 2.0 x 1.5 cm. The left lobe measures 5.1 x 2.0 x 1.7 cm. There is a complex right isthmic/lower pole nodule measuring 3.2 x 3.2 x 2.1 cm. This is felt to correspond with the CT findings. There is an echogenic focus within the nodule consistent with a calcification. This is visible on CT as well. IMPRESSION: Predominantly solid 3.2 cm thyroid nodule. TI-RAD score 4. Consider ultrasound-guided FNA. <Electronically signed by Guille Arreaga > 10/13/20 [id number]
== END ==
LOC: M RAD 12:05
PROVIDERS: ATTEND Internal Medicine Medical Oncology
DX: E04.1 Nontoxic single thyroid nodule (principal)

== ENCOUNTER → 2020-10-31 | Outpatient (CLI) | payer BC ==
[2020-10-31 12:17] LABS: FREE T4 0.78 NG/DL (0.76-1.46); THYROID STIMULATING HORMONE 2.59 uIU/ML (0.358-3.740)
== END ==
LOC: M LAB 10:39
PROVIDERS: ATTEND Otolaryngology
DX: D44.0 Neoplasm of uncertain behavior of thyroid gland (principal)

== ENCOUNTER → 2021-01-23 | Outpatient (CLI) | payer BC ==
[~2021-01-23] MED LIST changes: -CLIN150C15 PO; +CLIN150C17 PO
== END ==
LOC: M LABSMTC 10:40
PROVIDERS: ATTEND Anesthesiology
DX: Z01.812 Encounter for preprocedural laboratory examination (principal); Z20.822 Contact with and (suspected) exposure to COVID-19

== ENCOUNTER 2021-01-28 08:42 | Day surgery (SDC) | payer BC ==
[~2021-01-28] VITALS: Ht 188 cm; Wt 109.7 kg
[~2021-01-28 08:42] MED LIST changes: +LIDOCAINE 2% 100MG/5ML SDV (FOR ANES.) As Ordered ONE; +NS 1,000 ML IV ONE; +propofoL 200 MG/20 ML VIAL As Ordered ONE
--- OUTSIDE RECORDS SUMMARY | 2021-01-28 08:45 | CCD | Continuity of Care Document ---
Author Author Rc HYDE DO Organization Unknown Address [address], [address] [place] [address] Phone [phone] Care Team Providers Care Enrichment Director Name Role Phone Leona Olsen AUTM Anthony Parker MD AUTM [phone] Nikki Reaves M.D. AUTM [phone] Problems Active Problems Provider Date Difficulty breathing Clementine Mcmillan, N.PAftab Onset: 01/23/2018 Essential hypertension Tucker Hyde DO Onset: Social History Type Date Description Comments Sex Unknown ETOH Use Occasionally consumes alcohol Tobacco Use Start: Unknown Denies Smoking Recreational Drug Use Denies Drug Use Smoking Status Reviewed: 01/01/20 Denies Smoking Allergies, Adverse Reactions, Alerts Active Allergies Reaction Severity Comments Date Penicillin 01/23/2018 Medications Active Medications SIG Qnty Indications Ordering Provide r Date Lisinopril 20mg Tablets 1 by mouth every day Unknown Aspirin Adult Low Dose 81mg Tablet s DR 1 by mouth every day Unknown CPAP Apap 4-20cm Unknown Immunizations CPT Code Status Date Vaccine Lot # [id number] Refused 01/23/2018 Influenza Virus Vaccine, Quadrivalent, Slit Virus, Im Use Vital Signs Date Vital Result Comment 11/04/2020 8:53am BP Systolic 132 mmHg BP Diastolic 80 mmHg Height 74.5 inches 6'2.50" Weight 240.12 lb BMI (Body Mass Index) 30.4 kg/m2 Cutler Body Weight 190 lb Weight 108.921 kg BSA (Body Surface Area) 2.36 m2 10/31/2020 9:35am Height 74.5 inches 6'2.50" Weight 236.00 lb BMI (Body Mass Index) 29.9 kg/m2 Cutler Body Weight 190 lb Weight 107.050 kg BSA (Body Surface Area) 2.34 m2 Results Test Acquired Date Facility Test Result H/L Range Note FT4&TSH Panel 10/31/2020 [facility] nter Main Lab [address] [place] [id number] [phone] Thyroid Stimulating Hormone 2.590 uIU/ML Normal 0. 358-3.740 Free T4 0.78 ng/dL Normal 0.76-1.46 Laboratory test finding 10/31/2020 [facility] Main Lab [address] [place] [address] [phone] Free T3 3.0 pg/mL Normal 2.2-4.0 Procedures Date Code Description Status 11/04/2020 [address]9511 Office/Outpatient Established Lo w MDM 20-29 Min Completed Medical Devices Description No Information Available Encounters Type Date Location Provider Dx Diagnosis Office Visit 11/04/2020 8:[facility] Tucker Hyde DO Z85.038 Personal history of malignant neoplasm o f large intestine Assessments Date Code Description Provider 11/04/2020 Z85.038 Personal history of other malignant neoplasm of large intestine Tucker Hyde DO 10/31/2020 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 at [facility] Pulmonary/Thoracic 10/31/2020 - Daren Bowens MD* D44.0 Neoplasm of uncertain behavior of thyroid gland* New Xrays:* Ultrasound Guidance For Needle Placement, Scheduled: 11/19/20 Functional Status Functional Condition Comment Date Status Independent with all ADL's Activ e Independent with all IADL's Acti ve Mental Status Mental Condition Comment Date Status None Active Can understand information Activ e Referrals Refer to Reason for Referral Status Appt Date Kwan, Daren Sandoval MD Thyroid mass Closed 10/23 [address] [facility] [address] [place], [place] [id number] [phone] Tucker Hyde D.O. Scheduled 10/08/19 [address] [facility] [address] [place], [place] [id number] [phone]
--- OUTSIDE RECORDS SUMMARY | 2021-01-28 08:45 | CCD | Continuity of Care Document ---
Author Author IMELDA ROSALES, Rc AC ON LICENSE OF [facility] Organization Unknown Address [address] [address] Phone [phone] Care Team Providers Care Dock Operator Name Role Phone Leona Olsen AUTM [phone] Anthony Parker MD AUTM [phone] Nikki Reaves M.D. AUTM [phone] Problems Active Problems Provider Date Difficulty breathing Clementine Mcmillan, N.PAftab Onset: 01/23/2018 Essential hypertension Tucker Hyde, Onset: 0 Social History Type Date Description Comments Sex Unknown ETOH Use Occasionally consumes alcohol Tobacco Use Start: Unknown Denies Smoking Recreational Drug Use Denies Drug Use Smoking Status Reviewed: 01/01/20 Denies Smoking Allergies, Adverse Reactions, Alerts Active Allergies Criticality Reaction | Severity Comments Date Penicillin Unable to assess criticality 01/23/2018 Medications Active Medications SIG Qnty Indications Ordering Provide r Date Lisinopril 20mg Tablets 1 by mouth every day Unknown Aspirin Adult Low Dose 81mg Tablet s DR 1 by mouth every day Unknown CPAP Apap 4-20cm Unknown Immunizations CPT Code Status Date Vaccine Lot # [id number] Refused 01/23/2018 Influenza Virus Vaccine, Quadrivalent, Slit Virus, Im Use Vital Signs Date Vital Result Comment 11/04/2020 8:53am BP Systolic 132 mmHg BP Diastolic 80 mmHg Height 74.5 inches 6'2.50" Weight 240.12 lb BMI (Body Mass Index) 30.4 kg/m2 [place] Body Weight 190 lb Weight 108.921 kg BSA (Body Surface Area) 2.36 m2 10/31/2020 9:35am Height 74.5 inches 6'2.50" Weight 236.00 lb BMI (Body Mass Index) 29.9 kg/m2 [place] Body Weight 190 lb Weight 107.050 kg BSA (Body Surface Area) 2.34 m2 Results Test Acquired Date Facility Test Result H/L Range Note FT4&TSH Panel 10/31/2020 [facility] nter Main Lab [address] [place], [place] [id number] [phone] Thyroid Stimulating Hormone 2.590 uIU/ML Normal 0. 358-3.740 Free T4 0.78 ng/dL Normal 0.76-1.46 Laboratory test finding 10/31/2020 [facility] Main Lab [address] [place] [address] [phone] Free T3 3.0 pg/mL Normal 2.2-4.0 Procedures Date Code Description Status 11/04/2020 97293 Office/Outpatient Established Lo w MDM 20-29 Min Completed 10/31/2020 10414 Office/Outpatient New Moderate M DM 45-59 Minutes Completed 10/31/2020 04042 Laryngoscopy Flexible Fiberoptic Diagnostic Completed Medical Devices Description No Information Available Encounters Type Date Location Provider Dx Diagnosis Office Visit 11/04/2020 8:45a [facility] Tucker Hyde DO Z85.038 Personal history of malignant neoplasm o f large intestine Office Visit 10/31/2020 9:30a [facility] Daren Bowens MD 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 at [facility] Pulmonary/Thoracic 11/04/2020 - Tucker Hyde DO* Z85.038 Personal history of other malignant neoplasm of large intestine* Comments:* 60y/o male s/p treatment for rectal cancer. Plan is for repeat sigmoidoscopy for post - rectal cancer surveillance. Risks and benefits of the procedure are not limited to, but include, bleeding, infection, and perforation. He understands, and signed consent. Functional Status Functional Condition Comment Date Status Independent with all ADL's Activ e Independent with all IADL's Acti ve Mental Status Mental Condition Comment Date Status None Active Can understand information Activ e Referrals Refer to Reason for Referral Status Appt Daren Casiano MD Thyroid mass Closed 10/[address] [place] [phone] Tucker Hyde D.O. Scheduled 10/08/[address] [place] [phone]
--- OUTSIDE RECORDS SUMMARY | 2021-01-28 08:46 | CCD | Continuity of Care Document ---
Author Author IMELDA ROSALES, Rc AC [facility] Organization Unknown Address [address] [address] Phone [phone] Care Team Providers Care Filling Room Operator Name Role Phone Leona Olsen AUTM Anthony Parker MD AUTM [phone] Nikki Reaves M.D. AUTM [phone] Problems Active Problems Provider Date Difficulty breathing [...] CPT Code Status Date Vaccine Lot # [id number] Refused 01/23/2018 Influenza Virus Vaccine, Quadrivalent, Slit Virus, Im Use Vital Signs Date Vital Result Comment 10/31/2020 9:35am Height 74.5 inches 6'2.50" Weight 236.00 lb BMI (Body Mass Index) 29.9 kg/m2 [place] Body Weight 190 lb Weight 107.050 kg BSA (Body Surface Area) 2.34 m2 01/01/2020 11:01am BP Systolic 116 mmHg BP Diastolic 68 mmHg Heart Rate 48 /min O2 % BldC Oximetry 98 % Body Temperature 98.7 F Height 74.5 inches 6'2.50" Weight 238.50 lb BMI (Body Mass Index) 30.2 kg/m2 [place] Body Weight 190 lb Weight 108.184 kg BSA (Body Surface Area) 2.35 m2 Results Description No Information Available Procedures Description No Information Available Medical Devices Description No Information Available Encounters Description No Information Available Assessments Date Code Description Provider 10/31/2020 D44.0 Neoplasm of uncertain behavior o f thyroid gland Daren Bowens MD Plan of Treatment Future Appointment(s):* 11/04/2020 8:45 am - Tucker Hyde DO at [facility] * 12/31/2020 10:45 am - Clementine Mcmillan N.PAftab at [facility] Pulmonary/Thoracic 10/31/2020 - Daren Bowens MD* 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 Scheduled 10/08/[address] [place] [phone]
--- OUTSIDE RECORDS SUMMARY | 2021-01-28 08:46 | CCD ---
Author Author [facility] Organization [facility] Address Unknown Phone Unavailable Care Team Providers Care Personal Assistant Name Role Phone EDDIE, DENNISE PA Unavailable Unavailable EDDIE, DENNISE PA Unavailable Unavailable EDDIE, DENNISE PA Unavailable Unavailable EDDIE, DENNISE PA Unavailable Unavailable EDDIE, DENNISE PA Unavailable Unavailable EDDIE, DENNISE PA Unavailable Unavailable EDDIE, DENNISE PA Unavailable Unavailable EDDIE, DENNISE PA Unavailable Unavailable EDDIE, DENNISE PA Unavailable Unavailable EDDIE, DENNISE PA Unavailable Unavailable EDDIE, DENNISE PA Unavailable Unavailable EDDIE, DENNISE PA Unavailable Unavailable EDDIE, DENNISE PA Unavailable Unavailable EDDIE, DENNISE PA Unavailable Unavailable EDDIE, DENNISE PA Unavailable Unavailable Fam Olsen RETARDER OPERATOR Unavailable Unavailable Fam Olsen RETARDER OPERATOR Unavailable Unavailable Fam Olsen RETARDER OPERATOR Unavailable Unavailable Fam Olsen Leona RETARDER OPERATOR Unavailable Unavailable Fam Olsen Leona RETARDER OPERATOR Unavailable Unavailable Fam Olsen Leona RETARDER OPERATOR Unavailable Unavailable Fam Olsen Leona RETARDER OPERATOR Unavailable Unavailable Fam Olsen Leona RETARDER OPERATOR Unavailable Unavailable Fam Olsen Leona RETARDER OPERATOR Unavailable Unavailable Alberry, D Leona RETARDER OPERATOR Unavailable Unavailable Alberry, D Leona RETARDER OPERATOR Unavailable Unavailable Alberry, D Leona RETARDER OPERATOR Unavailable Unavailable Alberry, D Leona RETARDER OPERATOR Unavailable Unavailable Alberry, D Leona RETARDER OPERATOR Unavailable Unavailable Alberry, D Leona RETARDER OPERATOR Unavailable Unavailable Alberry, D Leona RETARDER OPERATOR Unavailable Unavailable Alberry, D Leona RETARDER OPERATOR Unavailable Unavailable Alberry, D Leona RETARDER OPERATOR Unavailable Unavailable Alberry, D Leona RETARDER OPERATOR Unavailable Unavailable Alberry, D Leona RETARDER OPERATOR Unavailable Unavailable Alberry, D Leona RETARDER OPERATOR Unavailable Unavailable Alberry, D Leona RETARDER OPERATOR Unavailable Unavailable Alberry, D Leona RETARDER OPERATOR Unavailable Unavailable Alberry, D Leona RETARDER OPERATOR Unavailable Unavailable Alberry, D Leona RETARDER OPERATOR Unavailable Unavailable Alberry, D Leona RETARDER OPERATOR Unavailable Unavailable Alberry, D Leona RETARDER OPERATOR Unavailable Unavailable Alberry, D Leona RETARDER OPERATOR Unavailable Unavailable Alberry, D Leona RETARDER OPERATOR Unavailable Unavailable Alberry, D Leona RETARDER OPERATOR Unavailable Unavailable Alberry, D Leona RETARDER OPERATOR Unavailable Unavailable Alberry, D Leona RETARDER OPERATOR Unavailable Unavailable Alberry, D Leona RETARDER OPERATOR Unavailable Unavailable Alberry, D Leona RETARDER OPERATOR Unavailable Unavailable Alberry, D Leona RETARDER OPERATOR Unavailable Unavailable Alberry, D Leona RETARDER OPERATOR Unavailable Unavailable Alberry, D Leona RETARDER OPERATOR Unavailable Unavailable Alberry, D Leona RETARDER OPERATOR Unavailable Unavailable Alberry, D Leona RETARDER OPERATOR Unavailable Unavailable Alberry, D Leona RETARDER OPERATOR Unavailable Unavailable Alberry, D Leona RETARDER OPERATOR Unavailable Unavailable Alberry, D Leona RETARDER OPERATOR Unavailable Unavailable Alberry, D Leona RETARDER OPERATOR Unavailable Unavailable Alberry, D Leona RETARDER OPERATOR Unavailable Unavailable Alberry, D Leona RETARDER OPERATOR Unavailable Unavailable Alberry, D Leona RETARDER OPERATOR Unavailable Unavailable Alberry, D Leona RETARDER OPERATOR Unavailable Unavailable Alberry, D Leona RETARDER OPERATOR Unavailable Unavailable Alberry, D Leona RETARDER OPERATOR Unavailable Unavailable Alberry, D Leona RETARDER OPERATOR Unavailable Unavailable Alberry, D Leona RETARDER OPERATOR Unavailable Unavailable Alberry, D Leona RETARDER OPERATOR Unavailable Unavailable Alberry, D Leona RETARDER OPERATOR Unavailable Unavailable Alberry, D Leona RETARDER OPERATOR Unavailable Unavailable Alberry, D Leona RETARDER OPERATOR Unavailable Unavailable Kemal HERNANDEZ DO Unavailable Unavailable Kemal HERNANDEZ DO Unavailable Unavailable Kemal HERNANDEZ DO Unavailable Unavailable Kemal HERNANDEZ DO Unavailable Unavailable BRYDEN, A SATNAM DO Unavailable Unavailable BRYDEN, A SATNAM DO Unavailable Unavailable BRYDEN, A SATNAM DO Unavailable Unavailable BRYDEN, A SATNAM DO Unavailable Unavailable BRYDEN, A SATNAM DO Unavailable Unavailable BRYDEN, A SATNAM DO Unavailable Unavailable BRYDEN, A SATNAM DO Unavailable Unavailable BRYDEN, A SATNAM DO Unavailable Unavailable BRYDEN, A SATNAM DO Unavailable Unavailable BRYDEN, A SATNAM DO Unavailable Unavailable BRYDEN, A SATNAM DO Unavailable Unavailable BRYDEN, A SATNAM DO Unavailable Unavailable BRYDEN, A SATNAM DO Unavailable Unavailable BRYDEN, A SATNAM DO Unavailable Unavailable BRYDEN, A SATNAM DO Unavailable Unavailable BRYDEN, A SATNAM DO Unavailable Unavailable BRYDEN, A SATNAM DO Unavailable Unavailable BRYDEN, A SATNAM DO Unavailable Unavailable BRYDEN, A SATNAM DO Unavailable Unavailable BRYDEN, A SATNAM DO Unavailable Unavailable BRYDEN, A SATNAM DO Unavailable Unavailable BRYDEN, A SATNAM DO Unavailable Unavailable BRYDEN, A SATNAM DO Unavailable Unavailable BRYDEN, A SATNAM DO Unavailable Unavailable BRYDEN, A SATNAM DO Unavailable Unavailable SYMENOW, G CHRISTOPHER PA Unavailable Unavailable SYMENOW, G CHRISTOPHER PA Unavailable Unavailable SYMENOW, G CHRISTOPHER PA Unavailable Unavailable SYMENOW, G CHRISTOPHER PA Unavailable Unavailable SYMENOW, G CHRISTOPHER PA Unavailable Unavailable SYMENOW, G CHRISTOPHER PA Unavailable Unavailable SYMENOW, G CHRISTOPHER PA Unavailable Unavailable SYMENOW, G CHRISTOPHER PA Unavailable Unavailable SYMENOW, G CHRISTOPHER PA Unavailable Unavailable SYMENOW, G CHRISTOPHER PA Unavailable Unavailable SYMENOW, G CHRISTOPHER PA Unavailable Unavailable SYMENOW, G CHRISTOPHER PA Unavailable Unavailable SYMENOW, G CHRISTOPHER PA Unavailable Unavailable SYMENOW, G CHRISTOPHER PA Unavailable Unavailable SYMENOW, G CHRISTOPHER PA Unavailable Unavailable SYMENOW, G CHRISTOPHER PA Unavailable Unavailable Rydberg, Kayli PA Unavailable Unavailable Rydberg, Kayli PA Unavailable Unavailable Rydberg, Kayli PA Unavailable Unavailable Rydberg, Kayli PA Unavailable Unavailable Rydberg, Kayli PA Unavailable Unavailable Rydberg, Kayli PA Unavailable Unavailable Rydberg, Kayli PA Unavailable Unavailable Rydberg, Kayli PA Unavailable Unavailable Rydberg, Kayli PA Unavailable Unavailable Rydberg, Kayli PA Unavailable Unavailable Rydberg, Kayli PA Unavailable Unavailable Rydberg, Kayli PA Unavailable Unavailable Rydberg, Kayli PA Unavailable Unavailable Rydberg, Kayli PA Unavailable Unavailable Rydberg, Kayli PA Unavailable Unavailable Rydberg, Kayli PA Unavailable Unavailable Rydberg, Kayli PA Unavailable Unavailable Rydberg, Kayli PA Unavailable Unavailable Rydberg, Kayli PA Unavailable Unavailable Rydberg, Kayli PA Unavailable Unavailable Rydberg, Kayli PA Unavailable Unavailable Rydberg, Kayli PA Unavailable Unavailable Rydberg, Kayli PA Unavailable Unavailable Case, M Dominique PA-C Unavailable Unavailable Case, M Dominique PA-C Unavailable Unavailable Case, M Dominique PA-C Unavailable Unavailable Case, M Dominique PA-C Unavailable Unavailable Case, M Dominique PA-C Unavailable Unavailable Case, M Dominique PA-C Unavailable Unavailable Case, M Dominique PA-C Unavailable Unavailable Case, M Dominique PA-C Unavailable Unavailable Case, M Dominique PA-C Unavailable Unavailable Case, M Dominique PA-C Unavailable Unavailable Case, M Dominique PA-C Unavailable Unavailable Case, M Dominique PA-C Unavailable Unavailable Case, M Dominique PA-C Unavailable Unavailable Case, M Dominique PA-C Unavailable Unavailable Case, M Dominique PA-C Unavailable Unavailable Case, M Dominique PA-C Unavailable Unavailable Case, M Dominique PA-C Unavailable Unavailable Case, M Dominique PA-C Unavailable Unavailable Case, M Dominique PA-C Unavailable Unavailable Case, M Dominique PA-C Unavailable Unavailable Case, M Dominique PA-C Unavailable Unavailable Case, M Dominique PA-C Unavailable Unavailable Case, M Dominique PA-C Unavailable Unavailable Case, M Dominique PA-C Unavailable Unavailable Case, M Dominique PA-C Unavailable Unavailable Case, M Dominique PA-C Unavailable Unavailable Case, M Dominique PA-C Unavailable Unavailable Case, M Dominique PA-C Unavailable Unavailable Case, M Dominique PA-C Unavailable Unavailable Case, M Dominique PA-C Unavailable Unavailable Case, M Dominique PA-C Unavailable Unavailable Case, M Dominique PA-C Unavailable Unavailable Case, M Dominique PA-C Unavailable Unavailable Case, M Dominique PA-C Unavailable Unavailable Case, M Dominique PA-C Unavailable Unavailable Case, M Dominique PA-C Unavailable Unavailable Case, M Dominique PA-C Unavailable Unavailable RADU, L NASIM PA Unavailable Unavailable RADU, L NASIM PA Unavailable Unavailable RADU, L NASIM PA Unavailable Unavailable RADU, L NASIM PA Unavailable Unavailable RADU, L NASIM PA Unavailable Unavailable RADU, L NASIM PA Unavailable Unavailable RADU, L NASIM PA Unavailable Unavailable RADU, L NASIM PA Unavailable Unavailable RADU, L NASIM PA Unavailable Unavailable RAUD, L NASIM PA Unavailable Unavailable RADU, L NASIM PA Unavailable Unavailable RADU, L NASIM PA Unavailable Unavailable RADU, L NASIM PA Unavailable Unavailable RADU, L NASIM PA Unavailable Unavailable RADU, L NASIM PA Unavailable Unavailable RADU, L NASIM PA Unavailable Unavailable RADU, L NASIM PA Unavailable Unavailable RADU, L NASIM PA Unavailable Unavailable RADU, L NASIM PA Unavailable Unavailable RADU, L NASIM PA Unavailable Unavailable RADU, L NASIM PA Unavailable Unavailable RADU, L NASIM PA Unavailable Unavailable Lundi, Hung DPM Unavailable Unavailable Lundi, Hung DPM Unavailable Unavailable Lundi, Hung DPM Unavailable Unavailable Lundi, Hung DPM Unavailable Unavailable Lundi, Hung DPM Unavailable Unavailable Lundi, Hung DPM Unavailable Unavailable Lundi, Hung DPM Unavailable Unavailable Lundi, Hung DPM Unavailable Unavailable Lundi, Hung DPM Unavailable Unavailable Lundi, Hung DPM Unavailable Unavailable Lundi, Hung DPM Unavailable Unavailable Lundi, Hung DPM Unavailable Unavailable Lundi, Hung DPM Unavailable Unavailable Lundi, Hung DPM Unavailable Unavailable Lundi, Hung DPM Unavailable Unavailable Lundi, Hung DPM Unavailable Unavailable Lundi, Hung DPM Unavailable Unavailable Lundi, Hung DPM Unavailable Unavailable Lundi, Hung DPM Unavailable Unavailable Lundi, Hung DPM Unavailable Unavailable Lundi, Hung DPM Unavailable Unavailable Lundi, Hung DPM Unavailable Unavailable Lundi, Hung DPM Unavailable Unavailable Lundi, Hung DPM Unavailable Unavailable Lundi, Hung DPM Unavailable Unavailable WillieJamia PA Unavailable Unavailable WillieJamia PA Unavailable Unavailable WillieJami Donna PA Unavailable Unavailable WillieJami Donna PA Unavailable Unavailable Willie, Jami Donna PA Unavailable Unavailable Willie, Jami Donna PA Unavailable Unavailable Willie Jami NAILS Unavailable Unavailable Willie Jami NAILS Unavailable Unavailable Re-disclosure Warning The records that you are about to access may contain information from federally-assisted alcohol or drug abuse programs. If such information is present, then the following federally mandated warning applies: This information has been disclosed to you from records protected by federal confidentiality rules (42 CFR part 2). The federal rules prohibit you from making any further disclosure of this information unless further disclosure is expressly permitted by the written consent of the person to whom it pertains or as otherwise permitted by 42 CFR part 2. A general authorization for the release of medical or other information is NOT sufficient for this purpose. The Federal rules restrict any use of the information to criminally investigate or prosecute any alcohol or drug abuse patient.The records that you are about to access may contain highly sensitive health information, the redisclosure of which is protected by Article 27-F of the [facility] Public Health law. If you continue you may have access to information: Regarding HIV / AIDS; Provided by facilities licensed or operated by the [facility] Office of Mental Health; or Provided by the [facility] Office for People With Developmental Disabilities. If such information is present, then the following [facility] mandated warning applies: This information has been disclosed to you from confidential records which are protected by state law. State law prohibits you from making any further disclosure of this information without the specific written consent of the person to whom it pertains, or as otherwise permitted by law. Any unauthorized further disclosure in violation of state law may result in a fine or snf sentence or both. A general authorization for the release of medical or other information is NOT sufficient authorization for further disc losure. Family History Family Member Name Family Member Gender Family Member Status Date o f Status Description Data Source(s) Unknown Female Problem [facility] ([facility]) Encounters Encounter Providers Location Date Indications Data Source(s ) Outpatient Attender: Donna NAILS 2020 09:10:57 AM EDT - 11/26/2020 09:34:34 AM EDT [facility] ([facility] ) Outpatient Attender: Donna NAILS 2020 07:06:22 AM EDT - 11/26/2020 08:15:55 AM EDT [facility] ([facility] ) Outpatient Attender: SATNAM Gary/Germaine/Micky/Alphonso ndl 11/04/2020 08:45:00 AM EDT [facility] ([facility]) [place] [address] [address] [address] 10/30/2020 12:00:00 AM EDT eCW1 ([facility]) [place] [address] [address] 08/25/2020 12:00:00 AM EDT eCW1 ([facility]) Outpatient Attender: Hung Ziegler DPM 08/18/2020 09:24:00 AM EDT [facility] Emergency Attender: NASIM Hernandez: Leona Rodriguez RETARDER OPERATOR 08/10/2020 04:05:00 PM EDT - 08/10/2020 04:10:00 PM EDT [facility] Patient discharged. [place] [address] [address] 06/29/2020 12:00:00 AM EDT eCW1 ([facility]) Outpatient Attender: Kayli Cuadraender: Dominique Christianson PA-C 06/27/2020 10:43:00 AM EDT [facility] Outpatient [address] [facility] [address] 06/27/2020 12:00:00 AM EDT eCW1 ([facility]) [facility] [address] [place] [address] 05/19/2020 12:00:00 AM EST eCW1 ([facility]) Outpatient [address] [facility] [place] [address] 04/07/2020 12:00:00 AM EST eCW1 ([facility]) [facility] [address] [facility] [place] [address] 03/17/2020 12:00:00 AM EST eCW1 ([facility]) Outpatient Attender: Hung Ziegler DPM 11/19/2019 08:57:00 AM [facility] Outpatient Attender: Kayli Aguilartushar PA 11/12/2019 02:54:00 PM [facility] Emergency Attender: DENNISE NAILS 08/16 11:36:00 AM EDT - 08/16/2016 12:26:00 PM [facility] Emergency Attender: ADONAY NAILS EMERGENCY ROOM- ER 06/24/2016 05:11:00 AM EDT - 06/24/2016 09:50:00 AM [facility] Immunizations Vaccine Date Status Description Data Source(s) COVID-19 VACCINE Moderna 07/28/2020 12:00:00 AM EDT completed [facility] Vaccine Series Complete: YESThis Data wa s Submitted to [facility] Via [employer]. COVID-19 VACCINE Moderna 07/04/2020 12:00:00 AM EDT completed [facility] Vaccine Series Complete: NOThis Data was Submitted to [facility] [employer]. Medications No Information Insurance Providers Payer name Policy type / Coverage type Policy ID Covered libertarian ID Covered libertarian's relationship to cervantes Policy Cervantes Plan Information [employer] [place] [id number] SP [id number] [place] 302/307 [id number] SP [id number] [place] 302/307 [id number] SP [id number] EXCELLUS BCBS [id number] Silvia VYS [id number] LIFETIME BENEFIT SOLUTIONS [id number] SP [id number] [place]BS [place] [id number] S VYS [id number] WORKER'S COMP [id number] Emp [id number] WORKER'S COMP [id number] Emp [id number] WORKER'S COMP UNAVAILABLE Emp UNAV AILABLE G&C FOODS 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 [id number] 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 [id number] Employee [id number] LIF[employer]IME BENEFIT SOLUTIONS [id number] SP [id number] WC EMPLOYER WC [id number] S [id number] [employer]SPORTATION WC [id number] S [id number] [employer]SPORT[employer] WC UNAVAILABLE S UNAVAILABLE [employer] COMM [id number] S [id number] [employer] COMM [id number] S [id number] SELF PAY SP UNAVAILABLE UNAVAILA BLE [employer] (pr) Commercial [id number] Self [employer] [place] [id number] SP [id number] EXCELLUS BC-BS PPO [id number] SP [id number] OTHER WORKERS COMPENSATION [id number] SP [id number] [employer] O [id number] S [id number] [place] PPO 302/307 [id number] SP [id number] [place]BS [place] [id number] S VYS [id number] [place] PPO 302/307 [id number] SP [id number] PROTECTIVE INS W/C [id number] SP [id number] [employer] [place] [id number] S VYS [id number] UVALDO SANTIAGO [id number] S [id number] [employer] [id number] S [id number] BCBS [place] PPO 302/307 [id number] SP [id number] EXCELLUS BCBS B [id number] S VYS [id number] EXCELLUS BCBS PI PI ANSI-Commercial [id number] Problems, Conditions, and Diagnoses Code Display Name Description Problem Type Effective Dates Data Source(s) L84 Corns and callosities CORNS AND CALLOSITIES Diagnosis 08/18/2020 09:24:00 AM [facility] Y93.89 Activity, other specified ACTIVITY, OTHER SPECIFIED Di agnosis 08/10/2020 04:05:00 PM [facility] Y92.[address] in unspeci fied non-institutional (private) residence as the place of occurrence of the external cause UNSP PLACE IN UNSP NON-INSTITUT (PRIVATE) RESIDENC Diagnosis 08/10/2020 04:05:00 PM [facility] W27.8XXA Contact with other nonpowered hand tool, initial encounter CONTACT WITH OTHER NONPOWERED HAND TOOL, INITIAL E Diagnosis 08/10/2020 04:05:00 PM [facility] Z79.899 Other senior living (current) drug therapy O THER TOOTH INSPECTOR (CURRENT) DRUG THERAPY Diagnosis 08/10/2020 04:05:00 PM [facility] Z79.82 terminal clerk (current) use of aspirin SKILLED NURSING (CU RRENT) USE OF ASPIRIN Diagnosis 08/10/2020 04:05:00 PM [facility] I10 Essential (primary) hypertension ESSENTIAL (PRIMARY) H YPERTENSION Diagnosis 08/10/2020 04:05:00 PM [facility] S61.432A Puncture wound without foreign body of l eft hand, initial encounter PUNCTURE WOUND W/O FOREIGN BODY OF LEFT HAND, INIT ENCNTR Diagnosis 08/10/2020 04:05:00 PM [facility] B07.0 Plantar wart PLANTAR WART Diagnosis 06/27/2020 10:43:00 A M [facility] E78.2 [id number] Mixed dyslipidemia Problem 04/07/2020 12:00: 00 AM EST eCW1 ([facility]) Surgeries/Procedures Procedure Description Date Indications Data Source(s) OFFICE OUTPATIENT VISIT 15 MINUTES 11/04/2020 12:00:00 AM EDT [facility] ([facility]) Results ID Date Data Source [id number] 10/31/2020 10:48:00 AM EDT [facility] ([facility]) Name Value Range Interpretation Code Description Data Kassandra rce(s) Supporting Document(s) Triiodothyronine (T3) Free [Mass/volume] in Serum or Plasma 3.0 pg/mL 2.2-4.0 Normal (applies to non-numeric results) [facility] ([facility]) ID Date Data Source [id number] 10/31/2020 10:48:00 AM EDT [facility] ([facility]) Name Value Range Interpretation Code Description Data Kassandra rce(s) Supporting Document(s) Thyroid Stimulating Hormone 2.590 uIU/ML 0.358-3.740 Norm al (applies to non- numeric results) [facility] ([facility]) Free T4 0.78 ng/dL 0.76-1.46 Normal (applies to non-numeric resul ts) [facility] ([facility], ) ID Date Data Source [id number] 08/11/2020 08:19:00 AM EDT [facility] Patient: RY GALLEGO Report - [facility].VisitID: [id number] [place] [address] [phone], MRegistration Date/Time: 08/10/2020 15:30 Weight:108.8 kg (S). Height/Length:73 inches (S). BMI:31.7 FAMILY HISTORYNegative. No significant family medical history. (Electronically signed by Lida Quezada 08/11/2020 07:31) Name Value Range Interpretation Code Description Data Kassandra rce(s) Supporting Document(s) ID Date Data Source [id number] 03/14/2020 12:00:00 AM EST [facility] Name Value Range Interpretation Code Description Data Kassandra rce(s) Supporting Document(s) SARS-CoV2 Rapid Antigen [facility] This lab was ordered by [facility] and reported by [facility]. ID Date Data Source [id number] 01/11/2020 09:45:00 AM EDT [facility] Name Value Range Interpretation Code Description Data Kassandra rce(s) Supporting Document(s) SARS coronavirus 2 RNA [facility] This lab was ordered by [facility] and reported by [facility]. Procedure Social History Code Duration Value Status Description Data Source(s ) Smoking 06/27/2020 12:00:00 AM EDT UNK completed eCW1 ([facility]) Smoking 06/27/2020 12:00:00 AM EDT UNK completed eCW1 ([facility]) Smoking 06/27/2020 12:00:00 AM EDT UNK completed eCW1 ([facility]) Smoking 06/27/2020 12:00:00 AM EDT UNK completed eCW1 ([facility]) Smoking 04/07/2020 12:00:00 AM EST UNK completed eCW1 ([facility]) Vital Signs ID Date Data Source UNK Name Value Range Interpretation Code Description Data Source(s) [place] body weight 190 [lb_av] 190 [lb_av] [facility] ([facility]) Body weight 108.921 kg 108.921 kg [facility] ([facility]) Body surface area Derived from formula 2.36 m2 2.36 m2 [facility] ([facility]) Body weight 240.12 [lb_av] 240.12 [lb_av] [facility] ([facility]) Body mass index (BMI) [Ratio] 30.4 kg/m2 30.4 k g/m2 [facility] ([facility]) Systolic blood pressure 132 mm[Hg] 132 mm[Hg] [facility] ([facility]) Diastolic blood pressure 80 mm[Hg] 80 mm[Hg] [facility] ([facility]) Body height 74.5 [in_i] 74.5 [in_i] [facility] ([facility]) 6'2.50" Body height 74.5 [in_i] 74.5 [in_i] [facility] ([facility]) 6'2.50" Body weight 236.00 [lb_av] 236.00 [lb_av] [facility] ([facility]) Body mass index (BMI) [Ratio] 29.9 kg/m2 29.9 k g/m2 [facility] ([facility]) [place] body weight 190 [lb_av] 190 [lb_av] [facility] ([facility]) Body weight 107.050 kg 107.050 kg [facility] ([facility]) Body surface area Derived from formula 2.34 m2 2.34 m2 [facility] ([facility]) Body weight 238 [lb_av] 238 [lb_av] eCW1 ([facility]) Body height 72.25 [in_i] 72.25 [in_i] eCW1 ([facility]) Body mass index (BMI) [Ratio] 32.05 kg/m2 32.05 kg/m2 eCW1 ([facility]) Heart rate 62 /min 62 /min eCW1 ([facility] Respiratory rate 18 /min 18 /min eCW1 ([facility]) Body temperature 97.5 [degF] 97.5 [degF] eCW1 ( [facility]) Systolic blood pressure 100 mm[Hg] 100 mm[Hg] e CW1 ([facility]) Diastolic blood pressure 60 mm[Hg] 60 mm[Hg] eCW1 ([facility]) Body weight 237 [lb_av] 237 [lb_av] eCW1 ([facility]) Body height 72.25 [in_i] 72.25 [in_i] eCW1 ([facility]) Body mass index (BMI) [Ratio] 31.92 kg/m2 31.92 kg/m2 eCW1 ([facility]) Heart rate 51 /min 51 /min eCW1 ([facility] Respiratory rate 18 /min 18 /min eCW1 ([facility]) Body temperature 97.6 [degF] 97.6 [degF] eCW1 ( [facility]) Systolic blood pressure 100 mm[Hg] 100 mm[Hg] e CW1 ([facility]) Diastolic blood pressure 62 mm[Hg] 62 mm[Hg] eCW1 ([facility]) Body weight 238.50 [lb_av] 238.50 [lb_av] MEDEN T ([facility], ) Oxygen saturation in Arterial blood by Pulse oximetry 98 % 98 % [facility] Body temperature 98.7 [degF] 98.7 [degF] MEDENT ([facility], ) Body mass index (BMI) [Ratio] 30.2 kg/m2 30.2 k g/m2 [facility] [place] body weight 190 [lb_av] 190 [lb_av] MEDEN T ([facility], ) Body height 74.5 [in_i] 74.5 [in_i] MEDENT ([facility], ) 6'2.50" Body weight 108.184 kg 108.184 kg MEDENT ([facility]) Systolic blood pressure 116 mm[Hg] 116 mm[Hg] [facility] Diastolic blood pressure 68 mm[Hg] 68 mm[Hg] [facility] ([facility]) Heart rate 48 /min 48 /min [facility] ([facility]) Oxygen saturation in Arterial blood by Pulse oximetry 98 % 98 % [facility] ([facility]) Body temperature 98.7 [degF] 98.7 [degF] [facility] ([facility]) Body height 74.5 [in_i] 74.5 [in_i] [facility] ([facility]) 6'2.50" Body weight 238.50 [lb_av] 238.50 [lb_av] [facility] Body mass index (BMI) [Ratio] 30.2 kg/m2 30.2 k g/m2 [facility] ([facility]) [place] body weight 190 [lb_av] 190 [lb_av] [facility] Body weight 108.184 kg 108.184 kg [facility] ([facility]) Body surface area Derived from formula 2.35 m2 2.35 m2 [facility] ([facility])
--- OUTSIDE RECORDS SUMMARY | 2021-01-28 08:46 | CCD | Continuity of Care Document ---
Author Author Rc HYDE DO Organization Unknown Address [address], [address] [place] [address] Phone [phone] Care Team Providers Care Clinical Data Management Director Name Role Phone Leona Olsen AUTM Anthony Parker MD AUTM [phone] Nikki Reaves M.D. AUTM [phone] Problems Active Problems Provider Date Difficulty breathing [...] CPT Code Status Date Vaccine Lot # [id number] Refused 01/23/2018 Influenza Virus Vaccine, Quadrivalent, Slit Virus, Im Use Vital Signs Date Vital Result Comment 11/04/2020 8:53am BP Systolic 132 mmHg BP Diastolic 80 mmHg Height 74.5 inches 6'2.50" Weight 240.12 lb BMI (Body Mass Index) 30.4 kg/m2 [place] Body Weight 190 lb Weight 108.921 kg BSA (Body Surface Area) 2.36 m2 10/31/2020 9:35am Height 74.5 inches 6'2.50" Weight 236.00 lb BMI (Body Mass Index) 29.9 kg/m2 [place] Body Weight 190 lb Weight 107.050 kg BSA (Body Surface Area) 2.34 m2 Results Test Acquired Date Facility Test Result H/L Range Note FT4&TSH Panel 10/31/2020 [facility] nter Main Lab [address] [place] [address] [phone] Thyroid Stimulating Hormone 2.590 uIU/ML Normal 0. 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 at [facility] Pulmonary/Thoracic 10/31/2020 - Daren Bowens MD* [...] Daren Casiano MD Thyroid mass Closed 10/23 [address] [facility] [address] [place] [address] [phone] Tucker Hyde D.O. Scheduled 10/08/[address] [place] [address] [address] [place], [place] [address] [phone]
--- OUTSIDE RECORDS SUMMARY | 2021-01-28 08:46 | CCD ---
Author Author [facility] Organization [facility] Address Unknown Phone Unavailable Care Team Providers Care Epic Analyst Name Role Phone Leona Olsen Unavailable PROBLEMS Type Condition ICD9-CM Code [id number] Code Onset Dates Condition S tatus W/U Status Risk SNOMED Code Notes Problem Mixed hyperlipidemia E78.2 Active confirmed 856968970 Problem Essential hypertension I10 Active confirmed 19142647 Problem Prostate cancer screening Z12.5 Active confirmed 948860560 Problem Immunization refused Z28.21 Active confirmed 929762409 Problem Healthy adult on routine physical examination Z00. 00 Active confirmed 368306551 Problem Bug bite, sequela W57.XXXS Active confirmed 850141749 Problem Immunization due Z23 Active confirmed 171 270798 Problem Mixed dyslipidemia E78.2 Active confirmed 3 73548354 Problem Non morbid obesity due to excess calories E66.09 Active confirmed 612270659 Problem Sleep apnea, unspecified type G47.30 Active confirm ed 56669848 Problem Allergic to insect bites Z91.038 Active confirmed 759937665 Problem Urinary hesitancy R39.11 Active confirmed 59 96332 Problem Cellulitis of other specified site L03.818 Activ e confirmed 852214070 ALLERGIES Allergen (clinical drug ingredient) Drug/Non Drug Allergy do cumented on EMR Reaction Allergy Type Onset Date Status penicillin G Penicillin G Sodium([facility] Code:[address]-79) Rash D rug Allergy Active Hayfever Congestion Non Drug Allergy Active ENCOUNTERS from 1960 to 2020-11-03 Encounter Location Date Provider Diagnosis [facility] [phone] [place] [address] Oct, Le[facility] IMMUNIZATIONS Vaccine Route Administration Date Status Influenza 6mo & up Fluzone Unknown Jan 10, 2017 Refus ed SOCIAL HISTORY Tobacco Use: Social History Observation Description Date Details (start date - stop date) never smoker Sex Assigned At : Social History Observation Description Sex Assigned At Unknown Audit Question Answer Notes Total Score: 1 Interpretation: Alcohol Education Language: Question Answer Notes Languages spoken: Amharic Faith: Question Answer Notes Faith No buddhism beliefs that would impact health care. Sexual Hx: Question Answer Notes Had sex in the last 12 months (vaginal, oral, or anal)? Yes Have you ever had an STD? No with Women only Use protection? No Drug and Alcohol Question Answer Notes Total Score: 0 Interpretation: No problems reported Alcohol Screening: Question Answer Notes Did you have a drink containing alcohol in the past year? Ye s Points 1 Interpretation Negative How often did you have six or more drinks on one occas ion in the past year? Never (0 points) How many drinks did you have on a typica l day when you were drinking in the past year? 1 or 2 (0 points) How often did you have a drink containing alcohol in t he past year? Monthly or less (1 point) BMI Care Goal Follow-Up Question Answer Notes Above Normal BMI Follow-Up Dietary management educatio n, guidance, and counseling Tobacco Use: Question Answer Notes Are you a: never smoker REASON FOR REFERRAL No Information VITAL SIGNS No information MEDICATIONS Medication SIG (Take, Route, Frequency, Duration) Notes Start Da te End Date Status Lisinopril 20 MG 1 tablet Orally Once a day for 90 Active Hydrocortisone Acetate 25 MG 1 suppository Rectal Thre e times a day for 30 day(s) May, Not-Taking MiraLax - 1 packet mixed with 8 ounces of fluid Or ally Once a day for 30 day(s) May, Not-Taking Aspirin 81 MG TAKE ONE TABLET BY MOUTH ONCE A DAY for 90 Active Ciprofloxacin HCl 500 MG 1 tablet Orally every 12 hrs for 21 day s Apr, Not-Taking PROCEDURES No Information RESULTS No Results REASON FOR VISIT no longer need appt MEDICAL (GENERAL) HISTORY Type Description Date Medical History Hypertension Medical History sleep apnea Medical History SCC of anus: chemoradiation Medical History BPH Surgical History colonoscopy: Jasmin 2015 Surgical History colonoscopy: Dr. Hyde SCC anus 2019 Surgical History colonoscopy: Dr. Hyde 02/2020 Hospitalization History infected insect bites 12/2018 Goals Section No Information Health Concerns No Information MEDICAL EQUIPMENT No Information MENTAL STATUS No Information FUNCTIONAL STATUS No Information ASSESSMENTS No Information PLAN OF TREATMENT Medication Medication Name Sig Start Date Stop Date Lisinopril 20 MG 1 tablet Orally Once a day for 90 Aspirin 81 MG TAKE ONE TABLET BY MOUTH ONCE A DAY for 90 Next Appt Details Provider Name:Mayuri Joseph, 2021-04-0 4 10:00:00 AM, [address], , [place], [address], Insurance Providers Payer Name Payer Address Payer Phone Insured Name Patient Relati onship to Insured Coverage Start Date Coverage End Date BC[employer] [place] [phone] [facility] [employer] [facility] [place] [address] RY GALLEGO
--- NOTE | 2021-01-28 10:20 | ROOR ---
Patient Name: Rc Gallego Procedure Date: 01/28/2021 10:03 AM Date of : 1960 Age: 60 Room: [facility] Gender: Male Note Status: Finalized Procedure: Colonoscopy Indications: High risk colon cancer surveillance: Personal history of colon cancer Providers: DO Sallie Holland MD: Leona Olsen NP Requesting Provider: Medicines: Propofol per Anesthesia Complications: No immediate complications. Procedure: Pre-Anesthesia Assessment: - Prior to the procedure, a History and Physical was performed, and patient medications and allergies were reviewed. The patient is competent. The risks and benefits of the procedure and the sedation options and risks were discussed with the patient. All questions were answered and informed consent was obtained. Patient identification and proposed procedure were verified by the physician, the nurse, the anesthesiologist and the product safety technician in the endoscopy suite. Mental Status Examination: alert and oriented. Airway Examination: normal oropharyngeal airway and neck mobility. Respiratory Examination: clear to auscultation. CV Examination: normal. Prophylactic Antibiotics: The patient does not require prophylactic antibiotics. Prior Anticoagulants: The patient has taken no previous anticoagulant or antiplatelet agents. ASA Grade Assessment: II - A patient with mild systemic disease. After reviewing the risks and benefits, the patient was deemed in satisfactory condition to undergo the procedure. The anesthesia plan was to use monitored anesthesia care (MAC). Immediately prior to administration of medications, the patient was re-assessed for adequacy to receive sedatives. The heart rate, respiratory rate, oxygen saturations, blood pressure, adequacy of pulmonary ventilation, and response to care were monitored throughout the procedure. The physical status of the patient was re-assessed after the procedure. The Colonoscope was introduced through the anus and advanced to the sigmoid colon for evaluation. This was the intended extent. The colonoscopy was performed without difficulty. The patient tolerated the procedure well. Findings: Non-bleeding internal hemorrhoids were found during endoscopy. The hemorrhoids were mild and Grade I (internal hemorrhoids that do not prolapse). Biopsies were taken with a cold forceps in the rectum for histology. Estimated blood loss was minimal. Impression: - Non-bleeding internal hemorrhoids. - Biopsies were taken with a cold forceps for histology in the rectum. Recommendation: - Patient has a contact number available for emergencies. The signs and symptoms of potential delayed complications were discussed with the patient. Return to normal activities tomorrow. Written discharge instructions were provided to the patient. - Patient has a contact number available for emergencies. The signs and symptoms of potential delayed complications were discussed with the patient. Return to normal activities tomorrow. Written discharge instructions were provided to the patient. - Await pathology results. - Repeat colonoscopy in 6 months for surveillance based on personal history of colon cancer. - Return to my office in 6 months. Procedure Code(s): --- Professional --- 11157, 52, Colonoscopy, flexible; with biopsy, single or multiple Diagnosis Code(s): --- Professional --- Z85.038, Personal history of other malignant neoplasm of large intestine K64.0, First degree hemorrhoids CPT copyright 2019 [employer]. All rights reserved. The codes documented in this report are preliminary and upon day care home mother review may be revised to meet current compliance requirements. Tucker Hyde DO 01/28/2021 10:19:34 AM Electronically signed by Tucker Hyde DO Number of Addenda: 0 Note Initiated On: 01/28/2021 10:03 AM Estimated Blood Loss: Estimated blood loss was minimal.
[2021-01-28 10:40] VITALS: BP 116/71
== END 2021-01-28 10:52 | disposition home or self-care (01) ==
LOC: M OPP 08:42
PROVIDERS: ATTEND Surgery
DX: Z85.048 Personal history of other malignant neoplasm of rectum, rectosigmoid junction, and anus (principal); K62.1 Rectal polyp; K64.0 First degree hemorrhoids; Z79.82 Long term (current) use of aspirin; Z79.899 Other long term (current) drug therapy; Z88.8 Allergy status to other drugs, medicaments and biological substances; Z92.3 Personal history of irradiation; Z92.21 Personal history of antineoplastic chemotherapy

== ENCOUNTER → 2021-02-16 | Outpatient (CLI) | payer BC ==
[~2021-02-16] MED LIST changes: +LIDOCAINE 1% MDV 20ML VIAL As Ordered ONE; -LIDOCAINE 2% 100MG/5ML SDV (FOR ANES.) As Ordered ONE; -NS 1,000 ML IV ONE; -propofoL 200 MG/20 ML VIAL As Ordered ONE
[2021-02-16 12:34] VITALS: BP 133/80
--- NOTE | 2021-02-17 08:17 | REP ---
INDICATION: RT THYROID NODULE. COMPARISON: None. TECHNIQUE: The procedure was performed under the direct supervision of Dr. Mendiola. The patient has a history of a 3.2 cm predominantly solid right thyroid nodule seen on a previous ultrasound dated 10/14/2019. The risks and benefits of the procedure were explained to the patient and informed consent was obtained. The right thyroid nodule was localized using ultrasound guidance. The skin was prepped and draped in a sterile fashion. 6 mL of 1% lidocaine was used as a local anesthetic. Using ultrasound guidance 6 fine-needle aspirations were obtained using 25 gauge needles. Estimated blood loss: Less than 1 mL. The patient tolerated the procedure well and there were no immediate complications. After the appropriate amount to monitor convalescence the patient was discharged from the department. FINDINGS: None IMPRESSION: Ultrasound-guided right thyroid biopsy. <Electronically signed by Abdulaziz Allen > 02/16/21 1653 <Electronically signed by José Miguel Mendiola > 02/17/21 [id number]
== END ==
LOC: M IRPRO 11:52
PROVIDERS: ATTEND Otolaryngology
DX: D34 Benign neoplasm of thyroid gland (principal)

== ENCOUNTER → 2021-02-16 | Outpatient (CLI) | payer BC ==
[~2021-02-16] MED LIST changes: -LIDOCAINE 1% MDV 20ML VIAL As Ordered ONE
--- NOTE | 2021-02-16 11:10 | RADONC ---
Radiation Oncology Hx/FUP Radiation Oncology Hx/FUP Date of Service: Feb 16, 2021 Pt Identifier Rc Gallego is a 60 year old male seen for a followup visit today at the department of radiation oncology for a history of cT2N1 stage IIIa anal cancer he completed chemoradiation to 54 Gy in 30 fractions on 09/07/19. Diagnosis/Treatment History Oncologic History 2018, when he first noted intermittent hematochezia. He was evaluated by JOSETTE Mei, in mid-winter 2018-2020, and was then referred to Tucker Hyde DO, of surgery at [facility]. Mr. Gallego has a long history of anal hemorrhoids, and the patient assumed that the bleeding was due to hemorrhoids. However, when examined by Dr. Hyde, a mass was palpable within finger length of the anal verge. The patient was taken to colonoscopy on June 20, 2019 with findings of poorly differentiated, non keratinizing squamous cell carcinoma (specimen [id number]). He was then referred to Medical Oncology emergently. He was seen by Medical Oncology on June 21, 2019, at which time he reported no significant pain, but expressed appropriate concern regarding his diagnosis. PET/CT scan showed only localized disease, and he underwent placement of a mediport. He then began the combination of Mitomycin C on day #1 of therapy, together with a 96 hour infusion of 5-Fluorouracil and initiation of external beam radiation therapy, all starting on July 23, 2019. Completed 54 Gy in 30 fractions on 09/07/19. MRI pelvis from 10/22/19 with CR. CEA trend 1.4 09/05/20 Item Value Date Time Carcinoembryonic Antigen 1.4 NG/ML 09/25/19 1059 Carcinoembryonic Antigen 5.0 NG/ML H 08/20/19 1021 Carcinoembryonic Antigen 3.5 NG/ML H 08/28/19 1420 Carcinoembryonic Antigen 1.2 NG/ML 03/07/20 1512 Carcinoembryonic Antigen 15.5 NG/ML H 06/21/19 1612 Carcinoembryonic Antigen 19.9 NG/ML H 07/23/19 1010 Recent data: 01/29/21 Colonoscopy ([facility]) No RT proctitis, no lesions, random biopsies negative, internal hemorrhoids. Interval History Rc continues to have scant intermittent BRBPR. No skin concerns, no diarrhea. He has 1-2 bowel movements daily. No urinary complaints. Appetite and energy levels intact. He has a pending FNA for a thyroid nodule today, some anxiety about this. Current Therapy Surveillance Stage [id number] SCC HPV+ Stage IIIa Social History: Never smoker Social drinker Allergies / Meds Allergies: Coded Allergies: Penicillins (Verified Allergy, Severe, anaphylaxis, 01/04/20) Home Meds Reported Medications Multivitamin (Multivitamin) 1 Each Tablet, 1 EACH PO DAILY, TAB 09/05/20 Lisinopril (Lisinopril) 20 Mg Tablet, 20 MG PO QHS 12/08/18 Aspirin (Aspirin EC) 81 Mg Tab, 81 MG PO DAILY, TAB 05/08/15 Review of Systems Review of Systems Constitutional: Denies: Fatigue, Weight Loss Eyes: Denies: Pain HEENT: Denies: Head Aches Skin: Denies: Rash Pulmonary: Denies: Dyspnea Cardiovascular: Denies: Chest Pain Gastrointestinal: Reports: Hematochezia; Denies: Abdominal Pain, Diarrhea Genitourinary: Denies: Dysuria, Frequency Endocrine: Denies: Cold Intolerance Musculoskeletal: Denies: Neck pain, Back pain Neurological: Denies: Weakness, Numbness Psych: Reports: Mood Normal Physical Examination Vital Signs Wt 241 lbs T 96.1 P 56 RR 18 BP 121/74 O2 97% Pain 0 Fatigue 0 General Exam: Alert, Cooperative, No Acute Distress Eye Exam: PERRLA, EOMI ENT EXAM: Atraumatic Neck Exam: Supple Chest Exam: Clear to auscultation Heart Exam: Rate Normal Abdomen Exam: Soft Extremity Exam: Negative: Edema Skin Exam: Nl turgor and temperature Neuro Exam: Normal Gait, Normal Speech, Cranial Nerves 3-12 NL Psych Exam: Mental status NL Other Physical Findings MARJAN deferred given colonoscopy negative 2 weeks ago Diagnostic and Laboratory Diagnostic Review Radiologic images, relevant labs and pathology reports were personally reviewed and discussed with Mr. Gallego. Assessment and Plan Impression Assessment Mr. Gallego is a 60 year old male with a history of cT2N1 stage IIIa anal cancer he completed chemoradiation to 54 Gy in 30 fractions on 09/07/19. He is doing well, no complaints. No evidence of RT proctitis on recent colonoscopy. Discussed his thyroid nodule at length, if FNA negative, then he would need repeat US. If positive he could be managed with lobectomy or total thyroidectomy. He is well-followed by Dr. Reaves and Barrett, thus will attempt to split follow up with them to save Rc appointments. Will see again in 9 months time. Performance Status ECOG 0 Plan Follow up in 9 months Mr. Gallego was encouraged to call with questions or concerns in the interim period. Billing Statement Total time of [25] minutes was spent preparing for the visit [1], obtaining HPI [5], examining the patient [1], reviewing diagnostic tests [4], discussing management options [5], coordinating care [2], and writing this note [7]. WES RODRIGUEZ MD Feb 16, 2021 11:10
== END ==
LOC: M ONCR 10:19
PROVIDERS: ATTEND General Practice
DX: C21.0 Malignant neoplasm of anus, unspecified (principal); Z92.3 Personal history of irradiation; Z92.21 Personal history of antineoplastic chemotherapy; Z88.0 Allergy status to penicillin; Z79.899 Other long term (current) drug therapy

== ENCOUNTER → 2021-08-07 | Outpatient (REF) | payer OTHER, BC ==
[~2021-08-07] MED LIST changes: +ONDA-84 PO; -ONDA8TAB10 PO
== END ==
LOC: M LAB REF 11:25
PROVIDERS: ATTEND Nurse Practitioner Family
DX: Z12.5 Encounter for screening for malignant neoplasm of prostate (principal)

== ENCOUNTER → 2021-09-11 | Outpatient (CLI) | payer OTHER ==
[~2021-09-11] MED LIST changes: +GASTROGRAFIN SOLUTION 30ML (Q9963) As Ordered ONE; +ISOVUE-370 76% 100ML VIAL As Ordered ONE
== END ==
LOC: M RAD 10:22
PROVIDERS: ATTEND Internal Medicine Medical Oncology
DX: C21.0 Malignant neoplasm of anus, unspecified (principal); C77.9 Secondary and unspecified malignant neoplasm of lymph node, unspecified; S22.000A Wedge compression fracture of unspecified thoracic vertebra, initial encounter for closed fracture; Z87.81 Personal history of (healed) traumatic fracture; K76.0 Fatty (change of) liver, not elsewhere classified; K80.20 Calculus of gallbladder without cholecystitis without obstruction; R16.1 Splenomegaly, not elsewhere classified; N28.1 Cyst of kidney, acquired; N40.1 Benign prostatic hyperplasia with lower urinary tract symptoms; M85.80 Other specified disorders of bone density and structure, unspecified site
CPT/HCPCS: 71260; 74177; Q9963; Q9967

== ENCOUNTER 2021-10-21 10:09 | Day surgery (SDC) | payer OTHER ==
[~2021-10-21] VITALS: Ht 188 cm; Wt 109.7 kg
[~2021-10-21 10:09] MED LIST changes: -BENI1TAB3 PO; -BENI40TA26 PO; -GASTROGRAFIN SOLUTION 30ML (Q9963) As Ordered ONE; -ISOVUE-370 76% 100ML VIAL As Ordered ONE; +NS 1,000 ML IV ONE; +OLME20TA55 PO; +OLME40TA56 PO
[2021-10-21] MEDS ORDERED: LIDOCAINE 2% 100MG/5ML SDV (FOR ANES.) As Ordered ONE (11:53)
[2021-10-21] MEDS ORDERED: propofoL 200 MG/20 ML VIAL As Ordered ONE (11:53)
[2021-10-21 12:20] VITALS: BP 118/59
== END 2021-10-21 12:30 | disposition home or self-care (01) ==
LOC: M OPP 10:09
PROVIDERS: ATTEND Surgery
DX: K62.89 Other specified diseases of anus and rectum (principal); Z85.038 Personal history of other malignant neoplasm of large intestine; Z08 Encounter for follow-up examination after completed treatment for malignant neoplasm; G47.30 Sleep apnea, unspecified; I10 Essential (primary) hypertension; Z79.82 Long term (current) use of aspirin; Z79.899 Other long term (current) drug therapy; Z99.89 Dependence on other enabling machines and devices; Z88.0 Allergy status to penicillin; Z53.8 Procedure and treatment not carried out for other reasons

== ENCOUNTER → 2022-02-09 | Outpatient (CLI) | payer OTHER ==
[~2022-02-09] MED LIST changes: -NS 1,000 ML IV ONE
== END ==
LOC: M RAD 09:56
PROVIDERS: ATTEND Otolaryngology
DX: E04.1 Nontoxic single thyroid nodule (principal)

== ENCOUNTER → 2022-05-27 | Outpatient (REF) | payer OTHER ==
[2022-05-27 11:33] LABS: CHOLESTEROL RISK RATIO 4.62 (<5); LDL CHOLESTEROL 82.2 MG/DL (<100)
== END ==
LOC: M SFHCCLAY 07:25
PROVIDERS: ATTEND Nurse Practitioner Family
DX: Z12.5 Encounter for screening for malignant neoplasm of prostate (principal); E78.2 Mixed hyperlipidemia
CPT/HCPCS: 80061; G0103

== ENCOUNTER → 2022-10-29 | Outpatient (CLI) | payer OTHER ==
[~2022-10-29] MED LIST changes: +GASTROGRAFIN SOLUTION 30ML As Ordered ONE; +ISOVUE-370 76% 100ML VIAL As Ordered ONE
== END ==
LOC: M RAD 09:23
PROVIDERS: ATTEND Internal Medicine Medical Oncology
DX: C21.0 Malignant neoplasm of anus, unspecified (principal); E04.1 Nontoxic single thyroid nodule; K80.20 Calculus of gallbladder without cholecystitis without obstruction
CPT/HCPCS: 71260; 74177; Q9963; Q9967

== ENCOUNTER → 2024-06-25 | Outpatient (REF) | payer OTHER ==
[~2024-06-25] MED LIST changes: -GARL500C2 PO; +GARL500C6 PO; -GASTROGRAFIN SOLUTION 30ML As Ordered ONE; -ISOVUE-370 76% 100ML VIAL As Ordered ONE
[2024-06-25 18:22] LABS: ALKALINE PHOSPHATASE 60 U/L (40-129); ALT/SGPT 22 U/L (7.0-40); AST/SGOT 15 U/L (<34); BILIRUBIN,TOTAL 0.9 MG/DL (0.3-1.2); BLOOD UREA NITROGEN 16 MG/DL (9-23); CALCIUM LEVEL 10.2 MG/DL (8.3-10.6); CARBON DIOXIDE LEVEL 27 MMOL/L (20-31); CHLORIDE LEVEL 108 MMOL/L (98-107); CREATININE FOR GFR 0.96 MG/DL (0.70-1.30); GLOMERULAR FILTRATION RATE > 60.0 (>49); GLUCOSE, FASTING 89 MG/DL (74-106); POTASSIUM SERUM 4.5 MMOL/L (3.5-5.1); SODIUM LEVEL 142 MMOL/L (136-145); TOTAL PROTEIN 6.8 G/DL (5.7-8.2)
[2024-06-25 18:25] LABS: BASO # 0.1 10^3/uL (0.0-0.2); BASO % 0.9 % (0.0-1.0); EOS # 0.2 10^3/uL (0.0-0.5); EOS % 4.1 % (0.0-3.0); HEMATOCRIT 50.1 % (42.0-52.0); HEMOGLOBIN 16.8 g/dl (13.5-17.5); LYMPH # 1.1 10^3/uL (1.5-5.0); LYMPH % 18.9 % (24.0-44.0); MEAN CORPUSCULAR HGB CONC 33.5 g/dl (32.0-36.5); MEAN CORPUSCULAR VOLUME 92.4 fl (80.0-96.0); MONO # 0.6 10^3/uL (0.0-0.8); MONO % 10.9 % (2.0-8.0); NEUTROPHILS # 3.6 10^3/uL (1.5-8.5); NEUTROPHILS % 64.5 % (36.0-66.0); PLATELET COUNT, AUTOMATED 229 10^3/uL (150-450); RED BLOOD COUNT 5.42 10^6/uL (4.30-6.10); WHITE BLOOD COUNT 5.6 10^3/uL (4.0-10.0)
== END ==
LOC: M LABDRAWC 16:55
PROVIDERS: ATTEND Internal Medicine Medical Oncology
DX: C21.0 Malignant neoplasm of anus, unspecified (principal)

== ENCOUNTER → 2024-06-25 | Outpatient (REF) | payer OTHER | LOC: M SFHCCLAY 13:23 | PROVIDERS: ATTEND Urology | DX: Z12.5 Encounter for screening for malignant neoplasm of prostate (principal) ==

== ENCOUNTER → 2024-11-23 | Outpatient (REF) | payer OTHER ==
[2024-11-23 18:15] LABS: ALT/SGPT 25.0 U/L (7.0-40); AST/SGOT 23.0 U/L (<34); CALCIUM LEVEL 10.8 MG/DL (8.3-10.6); CARBON DIOXIDE LEVEL 27.0 MMOL/L (20-31); CHLORIDE LEVEL 108.0 MMOL/L (98-107); CHOLESTEROL LEVEL 170.0 MG/DL (<200); CHOLESTEROL RISK RATIO 4.98 (<5); CREATININE FOR GFR 0.97 MG/DL (0.70-1.30); GLOMERULAR FILTRATION RATE 87.2 (>49); LDL CHOLESTEROL 103.1 MG/DL (<100); NON-HDL-C 135.9 MG/DL; POTASSIUM SERUM 4.5 MMOL/L (3.5-5.1); SODIUM LEVEL 143.0 MMOL/L (136-145); TRIGLYCERIDES LEVEL 164.0 MG/DL (<150)
[2024-11-23 18:40] LABS: ESTIMATED AVERAGE GLUCOSE 100.0 MG/DL (60-110)
== END ==
LOC: M SFHCCLAY 09:32
PROVIDERS: ATTEND Physician Assistant
DX: Z00.00 Encounter for general adult medical examination without abnormal findings (principal); I10 Essential (primary) hypertension